=== PATIENT | female | born 1965 | race Caucasian/White ===

== ENCOUNTER 2020-09-08 13:45 | Inpatient (IN) ==
[2020-09-08] MEDS ORDERED: NS 1000 ML 1,000 ML ONE (13:53)
--- NOTE | 2020-09-08 13:53 | DR.CP ---
HPI Time Seen Time Seen by Provider: 09/08/20 13:53 HPI Comment HPI Comment: PATIENT IS 54YR OLD FEMALE IN ER VIA EMS WITH RIFGT SIDED 10/10 [place] RIGHT SIDED CHEST PAIN RADIATING TO RIGHT ARM. PAIN ASSOCIATED WITH SOB AND DIAPHORESIS. PAIN INCREASE WITH EXERTION AND IMPROVE WITH REST. NO FEVER OR COUGH OR CONGESTION. SMOKE 1PPD. DENIES TRAUMA. DENIES SIMILAR PAIN PREVIOUSLY. Complaint Chief Complaint Doctor Comments: RIGHT SIDED CHEST PAIN RADIATING TO RIGHT ARM STARTED TODAY. COVID-19 Coronavirus risk:travel/contact w/high risk person: No Has patient experienced Coronavirus symptoms: No Reviewed Nurses Notes Review: Yes Source History Provided: Patient Mode of Arrival Mode of Arrival: EMS Timing Came on: Suddenly Duration Duration: Constant Duration: Hours Location Location of Chest Pain: Chest (RIGHT SIDED CP.) Chest Pain Radiation Location: Right Arm Context Onset: At rest Cardiac Risk Factors: Smoker and Diabetes PE Risk Factors: None History of: None Prehospital Care: Oxygen, IV, SL Nitro and ASA Quality Quality: Sharp Severity Severity: Moderate Modifying Factors Worsens: Exertion Impoves: Rest Associated Signs and Symptoms Associated Signs and Symptoms: Shortness of Breath and Other (DIAPHORESIS.) PMH PMH Past Surgical History: Yes Travel Risk Coronavirus risk:travel/contact w/high risk person: No Has patient experienced Coronavirus symptoms: Yes Coronavirus symptoms experienced: Shortness of Breath Infectious screening In the last 2 months have you had wt loss of >10#?: NO Have you had fever, night sweats or hemotysis?: No ROS Review of Systems Constitutional: See HPI, Diaphoresis, Weakness and Fatigue; negative Fever Eyes: No Symptoms Reported and See HPI ENTM: No Symptoms Reported and See HPI; negative Nose Discharge and Nose Congestion Respiratoy: Short of Breath; negative Moist Cough and Wheezing Cardiovascular: See HPI and Chest Pain; negative Edema and Palpitations Gastrointestinal/Abdominal: No Symptoms Reported and See HPI; negative Abdominal Pain, Diarrhea, Nausea and Vomiting Genitourinary: No Symptoms Reported and See HPI; negative Dysuria, Frequency and Hematuria Neurological: See HPI and Weakness; negative Headache and Dizziness Musculoskeletal: No Symptoms Reported and See HPI; negative Back Pain, Muscle Pain and Chest wall Integumentary: No Symptoms Reported and See HPI; negative Change in Color, Rash and Juandice Hematologic/Lymphatic: No Symptoms Reported and See HPI; negative Easy Bruising and Swollen Glands Endocrine: No Symptoms Reported and See HPI; negative Increased Thirst and Increased Urine Psychiatric: No Symptoms Reported and See HPI All Other Systems: Reviewed and Negative PE Vitals Vitals: Temperature 98.2 F Pulse Rate 101 Respiratory Rate 23 Blood Pressure 112/57 O2 Sat by Pulse Oximetry 93 General Limitations: No Limitations General Appearance: Alert, In No Apparent Distress and In Distress Head Head Exam: Normal Inspection and Atraumatic Eyes Eye exam: Normal Appearance and PERRL; negative Scleral Icterus and Conjunctival Injection ENT ENT Exam: Normal Exam, Normal Oropharynx, Normal External Ear Exam and TM's Normal Bilaterally Chest Chest Inspection: Normal Inspection and Symmetric Chest Wall Rise; negative Tenderness Respiratory Respiratory Exam: Respiratory Distress; negative Accessory Muscle Use and Chest Wall Tenderness Respiratory Exam: Bilateral: Rhonchi and Lower: Rhonchi Cardiovascular Cardiovascular Exam: Regular Rate, Normal Rhythm and Normal Heart Sounds; negative Systolic Murmur and Diastolic Murmur Pulse: Normal Edema: Normal Abdominal Exam Abdominal Exam: Normal Inspection, Normal Bowel Sounds and Soft; negative Tenderness Extremities Extremities Exam: Normal Inspection and Normal Capillary Refill; negative Tenderness, Edema and Calf Tenderness Back Back Exam: Normal Inspection; negative (R) CVA Tenderness and (L) CVA Tenderness Neurologic Neurological Exam: Alert, Oriented X3 and CN II-XII Intact; negative Motor Sensory Deficit Psychiatric Psychiatric Exam: Normal Affect and Normal Mood Skin Skin Exam: Warm, Dry, Intact and Normal Color MDM Differential Diagnosis Differential Diagnosis: Chest Wall Pain, CHF, Costochondritis, Myocardial Infarction, Pericarditis, Pneumonia and Pneumothorax COURSE Treatment Treatment: SEE ORDERS. NS 1L IV, TORADOL 60MG IV, MORPHIN 4GM IVPB, ZOFRAN 4MG IV AND ZITHROMAX 500MG IVPB. Reevaluation 1st: Improved (PAIN INCREASING.) Consultation Consultation Comments: DISCUSSED PATIENT WITH DR. WRIGHT. HE WILL ADMIT PATIENT. Education/Counseling Education/Counseling: Patient Educated On: Diagnosis and Needs for Follow Up ROR Labs Reviewed Laboratory Results Reviewed?: Yes Result Diagrams: 09/20/20 05:18 09/20/20 05:18 Laboratory: WBC 17.4 X10^3/uL (3.6-10.0) H 09/08/20 14:00 RBC 4.33 X10^6/uL (3.5-5.4) 09/08/20 14:00 Hgb 12.4 g/dL (12.0-16.0) 09/08/20 14:00 Hct 37.0 % (36.0-47.0) 09/08/20 14:00 MCV 85.6 fL (80.0-100.0) 09/08/20 14:00 MCH 28.5 pg (27.0-34.0) 09/08/20 14:00 MCHC 33.3 g/dL (33.0-35.0) 09/08/20 14:00 RDW 15.1 % (11.6-16.5) 09/08/20 14:00 Plt Count 555 X10^3/uL (150.0-450.0) H 09/08/20 14:00 MPV 8.5 fL (7.4-11.0) 09/08/20 14:00 Neut % (Auto) 66.7 % (42.0-75.0) 09/08/20 14:00 Lymph % (Auto) 23.1 % (21.0-51.0) 09/08/20 14:00 [place] % (Auto) 5.7 % (0.0-13.0) 09/08/20 14:00 Eos % (Auto) 3.1 % (0.9-2.9) H 09/08/20 14:00 Baso % (Auto) 1.4 % (0.2-1.0) H 09/08/20 14:00 Neut # (Auto) 11.6 x10^3/uL (2.2-4.8) H 09/08/20 14:00 Lymph # (Auto) 4.0 X10^3/uL (1.3-2.9) H 09/08/20 14:00 [place] # (Auto) 1.0 x10^3/uL (0.3-0.8) H 09/08/20 14:00 Eos # (Auto) 0.5 x10^3/uL (0.0-0.2) H 09/08/20 14:00 Baso # (Auto) 0.2 X10^3/uL (0.0-0.1) H 09/08/20 14:00 Absolute Nucleated RBC 0.0 /100WBC 09/08/20 14:00 PT 13.7 SECONDS (11.8-14.3) 09/08/20 14:42 INR Target Range - 09/08/20 14:42 INR 1.08 (0.8-1.3) 09/08/20 14:42 APTT 37.8 SECONDS (22.9-36.5) H 09/08/20 14:42 PTT Comment - 09/08/20 14:42 D-Dimer 2.36 ug/ml (0.0-0.57) H* 09/08/20 14:42 Sodium 138 mmol/L (136-145) 09/08/20 14:00 Corrected Sodium 139 mmol/L (136-145) 09/08/20 14:00 Potassium 4.5 mmol/L (3.5-5.1) 09/08/20 14:00 Chloride 100 mmol/L (98-107) 09/08/20 14:00 Carbon Dioxide 24.3 mmol/L (21-32) 09/08/20 14:00 BUN 14 mg/dL (7-18) 09/08/20 14:00 Creatinine 1.26 mg/dL (0.55-1.02) H 09/08/20 14:00 Est GFR (MDRD) Af Amer 57 (>60) L 09/08/20 14:00 Est GFR (MDRD) Non-Af 47 (>60) L 09/08/20 14:00 Glucose 129 mg/dL (65-99) H 09/08/20 14:00 Calcium 10.0 mg/dL (8.5-10.1) 09/08/20 14:00 Corrected Calcium 10.6 mg/dL (8.5-10.1) H 09/08/20 14:00 Total Bilirubin 0.20 mg/dL (0.2-1.0) 09/08/20 14:00 AST 16 Units/L (15-37) 09/08/20 14:00 ALT 18 Units/L (12-78) 09/08/20 14:00 Alkaline Phosphatase 95 Units/L (46-116) 09/08/20 14:00 Creatine Kinase 66 Units/L (26-192) 09/08/20 14:00 CK-MB (CK-2) < 1.0 ng/mL (0-4.0) 09/08/20 14:00 CK/CKMB % Calc 1.5 % (<4) 09/08/20 14:00 Troponin I < 0.02 ng/mL (0-1.5) 09/08/20 14:00 B-Natriuretic Peptide 16.5 pg/mL (0-79) 09/08/20 14:00 Total Protein 8.6 g/dL (6.4-8.2) H 09/08/20 14:00 Albumin 3.2 g/dL (3.4-5.0) L 09/08/20 14:00 Globulin 5.4 g/dL (2.5-4.5) H 09/08/20 14:00 Albumin/Globulin Ratio 0.6 Ratio (1.1-2.1) L 09/08/20 14:00 Amylase 66 Units/L (25-115) 09/08/20 14:00 Lipase 97 Units/L (73-393) 09/08/20 14:00 SARS-CoV-2 (PCR) Negative (NEGATIVE) 09/08/20 16:58 XRAY XRAY Interpreted by: Radiologist (REPORT NOTED AND DISCUSSED WITH PATIENT.) and Self EKG Rate: 91 [place]: Normal Rhythm: NSR Block: None Hypertrophy: LAE ST: Nonsp Opioid Opioid Risk Tool Age (Genaro box if 16-45): No Total: 0 Total Score Risk Category: Low Risk Copyright: Triana ANGELA predicting aberrant behaviors Diagnosis Discharge Problem: Pulmonary cavitary lesion Pneumonia Qualifiers: Pneumonia type: due to unspecified organism Laterality: right Lung location: upper lobe of lung Qualified Code(s): J18.9 - Pneumonia, unspecified organism Chest pain Qualifiers: Chest pain type: intercostal pain Qualified Code(s): R07.82 - Intercostal pain Instructions Instructions: Home Oxygen Use, Adult Steps to Quit Smoking, Ekzk-[id number] Type 2 Diabetes Mellitus, Self Care, Adult, Oqxf-le-Khjf Chronic Obstructive Pulmonary Disease Exacerbation, Icbb-[id number] Pleural Effusion Pursed Lip Breathing Heart Failure, Cnto-eq-Fihe Living With Heart Failure Respiratory Syncytial Virus, Adult Community-Acquired Pneumonia, Adult, [id number] Forms: Excuse From Work Precautions for COVID19 Patient Portal Social Distancing
[2020-09-08] MEDS ORDERED: MORPHINE SULFATE INJ 4 MG ONE ×2 (13:58→16:44)
[2020-09-08] MEDS ORDERED: ZOFRAN INJ 4 MG VIAL ONE (13:59)
[2020-09-08 14:09] VITALS: BMI 37.2
[2020-09-08] MEDS ORDERED: MORPHINE SULFATE INJ 4 MG IVP ONE ×2 (14:19→16:47)
[2020-09-08] MEDS ORDERED: ZOFRAN INJ 4 MG VIAL IVP ONE (14:19)
[2020-09-08 14:30] LABS: BASOPHILS # (AUTO) 0.2 X10^3/uL (0.0-0.1); BASOPHILS % (AUTO) 1.4 % (0.2-1.0); EOSINOPHILS # (AUTO) 0.5 x10^3/uL (0.0-0.2); EOSINOPHILS % (AUTO) 3.1 % (0.9-2.9); HEMOGLOBIN 12.4 g/dL (12.0-16.0); LYMPHOCYTES % (AUTO) 23.1 % (21.0-51.0); MEAN CORPUSCULAR HEMOGLOBIN 28.5 pg (27.0-34.0); MEAN CORPUSCULAR HGB CONC 33.3 g/dL (33.0-35.0); MEAN CORPUSCULAR VOLUME 85.6 fL (80.0-100.0); MEAN PLATELET VOLUME 8.5 fL (7.4-11.0); MONOCYTES % (AUTO) 5.7 % (0.0-13.0); NEUTROPHILS # (AUTO) 11.6 x10^3/uL (2.2-4.8); NEUTROPHILS % (AUTO) 66.7 % (42.0-75.0); PLATELET COUNT 555 X10^3/uL (150.0-450.0); RED BLOOD COUNT 4.33 X10^6/uL (3.5-5.4); RED CELL DISTRIBUTION WIDTH 15.1 % (11.6-16.5); WHITE BLOOD COUNT 17.4 X10^3/uL (3.6-10.0)
[2020-09-08 14:54] LABS: BLOOD UREA NITROGEN 14 mg/dL (7-18); CARBON DIOXIDE 24.3 mmol/L (21-32); CHLORIDE 100 mmol/L (98-107); COR NA(FOR HYPERGLY) 139 mmol/L (136-145); CREATININE 1.26 mg/dL (0.55-1.02); SODIUM 138 mmol/L (136-145); TROPONIN I < 0.02 ng/mL (0-1.5); eGFR NON BLACK RACES 47 (>60)
[2020-09-08] MEDS ORDERED: NS 1000 ML 1,000 ML IV SCH (15:00)
[2020-09-08 15:09] LABS: ALANINE AMINOTRANSFERASE 18 Units/L (12-78); ALBUMIN 3.2 g/dL (3.4-5.0); ALKALINE PHOSPHATASE 95 Units/L (46-116); AMYLASE 66 Units/L (25-115); ASPARTATE AMINO TRANSFERASE 16 Units/L (15-37); CKMB % 1.5 % (<4); COR CA(FOR HYPOALB) 10.6 mg/dL (8.5-10.1); CREATINE KINASE 66 Units/L (26-192); CREATINE KINASE MB < 1.0 ng/mL (0-4.0); LIPASE 97 Units/L (73-393); TOTAL PROTEIN 8.6 g/dL (6.4-8.2)
--- NOTE | 2020-09-08 16:18 | CT ---
HISTORYPT C/O RT SIDED CHEST PAIN RADIATING TO RT SHOULDER AND UNDER RT BREAST. PT IS NOTED TO BE DIAPHORETIC AND HAVING SHORTNESS OF BREATH. SENIOR ENGINEER EMS ADMINISTERED [id number] PO AND NITRO X2 LAST ONE ADMINISTERED AT 1238.STUDYCTA CHESTCOMPARISONNoneTECHNIQUEMultiple axial images of the chest were obtained from the thoracic inlet to the upper abdomen after the administration of IV contrast. 3D reconstructions utilizing axial MIPS imaging was performed and reviewed. Dose reduction techniques including Automated Exposure Control (AEC) and adjustment of mA and kV were utilized.FINDINGSNo pneumothorax. Trace right pleural effusion. Cavitary 3.2 x 1.9 cm right upper lobe nodule. Additional smaller nodules throughout the bilateral lungs. Ground-glass opacities scattered throughout the bilateral lungs.Evaluation of the pulmonary arteries is limited due to contrast bolus timing. No evidence of pulmonary embolism within study limits.The heart is normal in size. No evidence of pericardial disease. Coronary calcifications. Mediastinal and right hilar adenopathy.No acute osseous abnormality.Limited visualized portions of the upper abdomen demonstrate no significant abnormality.IMPRESSIONNo evidence of pulmonary embolism within limits.Cavitary right upper lobe nodule measuring 3.2 x 1.9 cm. Additional smaller nodules throughout the bilateral lungs. Findings may be due to autoimmune or infectious process. Septic embolism or malignancy not excluded. Recommend follow-up to resolution.Mediastinal and right hilar adenopathy, likely secondary to above. Malignancy/metastasis not excluded. Continued follow-up recommended.Trace right pleural effusion.Electronically signed by: LOUIS BUSH (Sep 08, 2020 16:20:41)
[2020-09-08] MEDS ORDERED: ZOFRAN INJ 4 MG VIAL IVP PRN (16:49)
[2020-09-08] MEDS ORDERED: NS 250 ML IV 250 ML IV ONE (17:40)
[2020-09-08] MEDS ORDERED: ZITHROMAX INJ 500 MG VIAL IV ONE (17:40)
[2020-09-08] MEDS: ZITHROMAX INJ 500 MG VIAL 500 MG in NS 250 ML IV 250 ML IV SCH (17:48)
[2020-09-08 18:50] LABS: ABG BASE EXCESS -1.3 mmol/L (-2.0-2.0); ABG HCO3 24.3 mmol/L (22-26); FRACTIONATED INSPIRED OXYGEN 28
[2020-09-08] MEDS ORDERED: TUSSIONEX PENNKINETIC SUSP PO PRN (18:50)
[2020-09-08 18:51] LABS: ABG ALLEN TEST POS
[2020-09-08] MEDS ORDERED: TORADOL 60 MG VIAL IM ONE (19:29)
[2020-09-08] MEDS ORDERED: TORADOL 60 MG VIAL ONE (19:41)
[2020-09-08] MEDS ORDERED: NS 1/2 1000 ML IV 1,000 ML IV ONE (19:49)
[2020-09-08] MEDS: NS 1/2 1000 ML IV 1,000 ML IV SCH ×2 (19:54→19:57)
[2020-09-08] MEDS ORDERED: INSULIN GLARGINE 80 UNIT SUBCUT SCH (21:00)
[2020-09-08] MEDS: ZOSYN VIAL 3.375 GRAMS 3.375 G in NS 100 ML IV + SPIKE MINIBAG* 100 ML IV SCH ×2 (22:27→22:28)
[2020-09-08] MEDS: ROBITUSSIN DM PO SCH (22:28)
[2020-09-08] MEDS ORDERED: GLUCOPHAGE ONE (22:42)
[2020-09-08] MEDS ORDERED: NEURONTIN CAP 400 MG ONE (22:43)
[2020-09-08] MEDS: GLUCOPHAGE PO SCH (22:51)
[2020-09-08] MEDS: EFFEXOR XR 150 MG CAP 24-HR PO SCH (22:51)
[2020-09-08] MEDS: WELLBUTRIN SR 150 MG (BID) PO SCH (22:51)
[2020-09-08] MEDS: NEURONTIN CAP 400 MG PO SCH (22:51)
[2020-09-08] MEDS: LIPITOR TAB 20 MG PO SCH (22:51)
[2020-09-08] MEDS: SINGULAIR TAB 10 MG PO SCH (22:51)
[2020-09-08 23:55] LABS: CKMB % 2.4 % (<4); CREATINE KINASE 42 Units/L (26-192); CREATINE KINASE MB < 1.0 ng/mL (0-4.0); TROPONIN I < 0.02 ng/mL (0-1.5)
[2020-09-09] MEDS: MORPHINE SULFATE INJ 4 MG IVP PRN ×3 (04:15→18:30)
[2020-09-09] MEDS ORDERED: GLUCOPHAGE ONE ×2 (05:10→17:13)
[2020-09-09] MEDS: NEURONTIN CAP 100 MG PO SCH ×2 (05:48→12:59)
[2020-09-09] MEDS: ZOSYN VIAL 3.375 GRAMS 3.375 G in NS 100 ML IV + SPIKE MINIBAG* 100 ML IV SCH (05:49)
[2020-09-09 06:06] LABS: BASOPHILS # (AUTO) 0.1 X10^3/uL (0.0-0.1); BASOPHILS % (AUTO) 0.4 % (0.2-1.0); EOSINOPHILS # (AUTO) 0.3 x10^3/uL (0.0-0.2); EOSINOPHILS % (AUTO) 1.2 % (0.9-2.9); HEMATOCRIT 32.4 % (36.0-47.0); HEMOGLOBIN 10.6 g/dL (12.0-16.0); LYMPHOCYTES # (AUTO) 1.9 X10^3/uL (1.3-2.9); LYMPHOCYTES % (AUTO) 8.8 % (21.0-51.0); MEAN CORPUSCULAR HEMOGLOBIN 28.1 pg (27.0-34.0); MEAN CORPUSCULAR HGB CONC 32.6 g/dL (33.0-35.0); MEAN CORPUSCULAR VOLUME 86.2 fL (80.0-100.0); MEAN PLATELET VOLUME 8.5 fL (7.4-11.0); MONOCYTES # (AUTO) 1.1 x10^3/uL (0.3-0.8); MONOCYTES % (AUTO) 5.1 % (0.0-13.0); NEUTROPHILS # (AUTO) 18.7 x10^3/uL (2.2-4.8); NEUTROPHILS % (AUTO) 84.5 % (42.0-75.0); PLATELET COUNT 433 X10^3/uL (150.0-450.0); RED BLOOD COUNT 3.76 X10^6/uL (3.5-5.4); WHITE BLOOD COUNT 22.2 X10^3/uL (3.6-10.0)
[2020-09-09 06:17] LABS: ALANINE AMINOTRANSFERASE 14 Units/L (12-78); ALBUMIN 2.5 g/dL (3.4-5.0); ALKALINE PHOSPHATASE 79 Units/L (46-116); ASPARTATE AMINO TRANSFERASE 12 Units/L (15-37); BLOOD UREA NITROGEN 23 mg/dL (7-18); CALCIUM 8.7 mg/dL (8.5-10.1); CARBON DIOXIDE 24.4 mmol/L (21-32); CHLORIDE 100 mmol/L (98-107); CKMB % 2.3 % (<4); COR CA(FOR HYPOALB) 9.9 mg/dL (8.5-10.1); COR NA(FOR HYPERGLY) 137 mmol/L (136-145); CREATINE KINASE 43 Units/L (26-192); CREATINE KINASE MB < 1.0 ng/mL (0-4.0); CREATININE 1.49 mg/dL (0.55-1.02); SODIUM 135 mmol/L (136-145); TROPONIN I < 0.02 ng/mL (0-1.5); eGFR NON BLACK RACES 39 (>60)
[2020-09-09] MEDS: GLUCOPHAGE PO SCH ×2 (06:17→17:19)
[2020-09-09 06:52] LABS: BAND NEUTROPHILS % 2 % (0-10)
[2020-09-09 06:53] LABS: PLATELET MORPHOLOGY COMMENT NORMAL (NORMAL)
[2020-09-09] MEDS ORDERED: TRICOR TAB 160 MG PO SCH ×2 (09:00→21:00)
[2020-09-09] MEDS ORDERED: ACTOS PO SCH ×2 (09:00→12:00)
[2020-09-09] MEDS ORDERED: VICTOZA SC SCH ×2 (09:00→21:00)
[2020-09-09] MEDS ORDERED: NS 1/2 1000 ML IV 0 ML IV ONE (09:03)
[2020-09-09] MEDS: ASPIRIN 81 MG CHEWTAB PO SCH (09:06)
[2020-09-09] MEDS: NS 1/2 1000 ML IV 1,000 ML IV SCH ×2 (09:07→11:06)
[2020-09-09] MEDS: ROBITUSSIN DM PO SCH ×4 (09:07→21:18)
[2020-09-09] MEDS: VSL#3 PO SCH (09:07)
[2020-09-09] MEDS: WELLBUTRIN SR 150 MG (BID) PO SCH ×2 (09:08→21:19)
[2020-09-09] MEDS: ZITHROMAX INJ 500 MG VIAL 500 MG in NS 250 ML IV 250 ML IV SCH (09:09)
[2020-09-09] MEDS: MERREM VIAL 500 MG in NS 100 ML IV + SPIKE MINIBAG* 100 ML IV SCH ×3 (10:54→21:21)
[2020-09-09] MEDS: LR 1000 ML IV 1,000 ML IV SCH ×2 (10:57→20:53)
[2020-09-09] MEDS: HumuLIN R SUBCUT PRN (11:30)
[2020-09-09] MEDS ORDERED: TYLENOL 325 MG TAB PO PRN (12:23)
[2020-09-09] MEDS: ACTOS PO SCH (12:59)
[2020-09-09] MEDS ORDERED: DUONEB 0.5 MG/3 MG (3 mL) NEB ONE (18:20)
[2020-09-09] MEDS ORDERED: TRICOR TAB 160 MG ONE (19:41)
[2020-09-09] MEDS ORDERED: PULMICORT NEB TX 0.5 MG NEB ONE (19:43)
[2020-09-09] MEDS ORDERED: NS 250 ML IV 250 ML IV ONE (21:06)
[2020-09-09] MEDS: PULMICORT NEB TX 0.5 MG NEB SCH (21:15)
[2020-09-09] MEDS: EFFEXOR XR 150 MG CAP 24-HR PO SCH (21:17)
[2020-09-09] MEDS: LIPITOR TAB 20 MG PO SCH (21:17)
[2020-09-09] MEDS: NEURONTIN CAP 400 MG PO SCH (21:18)
[2020-09-09] MEDS: TRICOR TAB 160 MG PO SCH (21:19)
[2020-09-09] MEDS: SINGULAIR TAB 10 MG PO SCH (21:19)
[2020-09-09] MEDS: VICTOZA SC SCH (21:20)
[2020-09-10] MEDS: XOPENEX 1.25 MG/3 ML NEBULE NEB SCH ×4 (00:05→17:12)
[2020-09-10] MEDS: MORPHINE SULFATE INJ 4 MG IVP PRN ×3 (01:00→16:25)
[2020-09-10] MEDS: LR 1000 ML IV 1,000 ML IV SCH ×3 (05:45→18:53)
[2020-09-10] MEDS: MERREM VIAL 500 MG in NS 100 ML IV + SPIKE MINIBAG* 100 ML IV SCH ×3 (05:45→21:15)
[2020-09-10] MEDS ORDERED: GLUCOPHAGE ONE ×2 (05:53→16:18)
[2020-09-10 06:04] LABS: BASOPHILS % (AUTO) 0.1 % (0.2-1.0); EOSINOPHILS % (AUTO) 0.1 % (0.9-2.9); HEMATOCRIT 30.7 % (36.0-47.0); HEMOGLOBIN 10.2 g/dL (12.0-16.0); LYMPHOCYTES # (AUTO) 1.4 X10^3/uL (1.3-2.9); LYMPHOCYTES % (AUTO) 5.7 % (21.0-51.0); MEAN CORPUSCULAR HEMOGLOBIN 28.5 pg (27.0-34.0); MEAN CORPUSCULAR VOLUME 86.3 fL (80.0-100.0); MEAN PLATELET VOLUME 8.8 fL (7.4-11.0); MONOCYTES # (AUTO) 0.8 x10^3/uL (0.3-0.8); MONOCYTES % (AUTO) 3.2 % (0.0-13.0); NEUTROPHILS # (AUTO) 22.7 x10^3/uL (2.2-4.8); NEUTROPHILS % (AUTO) 90.9 % (42.0-75.0); PLATELET COUNT 410 X10^3/uL (150.0-450.0); RED BLOOD COUNT 3.56 X10^6/uL (3.5-5.4)
[2020-09-10] MEDS: NEURONTIN CAP 100 MG PO SCH ×2 (06:09→11:34)
[2020-09-10] MEDS: GLUCOPHAGE PO SCH ×2 (06:10→16:23)
[2020-09-10] MEDS: HumuLIN R SUBCUT PRN ×3 (06:10→16:23)
[2020-09-10 06:30] LABS: ALANINE AMINOTRANSFERASE 15 Units/L (12-78); ALKALINE PHOSPHATASE 84 Units/L (46-116); ASPARTATE AMINO TRANSFERASE 29 Units/L (15-37); BLOOD UREA NITROGEN 18 mg/dL (7-18); CALCIUM 8.8 mg/dL (8.5-10.1); CARBON DIOXIDE 26.8 mmol/L (21-32); CHLORIDE 98 mmol/L (98-107); COR CA(FOR HYPOALB) 10.4 mg/dL (8.5-10.1); COR NA(FOR HYPERGLY) 136 mmol/L (136-145); CREATININE 1.03 mg/dL (0.55-1.02); SODIUM 133 mmol/L (136-145); TOTAL PROTEIN 7.4 g/dL (6.4-8.2); eGFR NON BLACK RACES 60 (>60)
[2020-09-10 06:39] LABS: PLATELET MORPHOLOGY COMMENT NORMAL (NORMAL)
[2020-09-10] MEDS: WELLBUTRIN SR 150 MG (BID) PO SCH ×2 (09:10→21:15)
[2020-09-10] MEDS: VSL#3 PO SCH (09:10)
[2020-09-10] MEDS: ASPIRIN 81 MG CHEWTAB PO SCH (09:10)
[2020-09-10] MEDS: ROBITUSSIN DM PO SCH ×4 (09:10→21:15)
[2020-09-10] MEDS: ZITHROMAX INJ 500 MG VIAL 500 MG in NS 250 ML IV 250 ML IV SCH (09:11)
[2020-09-10] MEDS: PULMICORT NEB TX 0.5 MG NEB SCH ×2 (09:50→21:50)
--- NOTE | 2020-09-10 10:12 | RAD ---
HISTORYPneumoniaSTUDYChest AP portableCOMPARISONCTA chest with contrast 09/08/2020FINDINGSThe heart is enlarged. Diffuse bilateral perihilar alveolar filling is now present representing a change from the recent CTA chest. The lung nodules described on the CTA chest are obscured by these infiltrates. This could represent cardiogenic or noncardiogenic edema or bilateral pneumonia. No pleural effusions are identified. Bony thorax is unremarkable.IMPRESSIONIncreasing bilateral perihilar alveolar filling when compared to the prior examination now obscuring the nodular densities described on the recent CTA chest. This could be cardiogenic or noncardiogenic pulmonary edema or infection.CardiomegalyElectronically signed by: LOUIS BUSH (Sep 10, 2020 10:11:55)
[2020-09-10] MEDS: AVELOX IV 400 MG/250 ML BAG 400 MG/250 ML PIGGYBACK IV SCH (11:32)
[2020-09-10] MEDS: ACTOS PO SCH (11:35)
[2020-09-10] MEDS: TRICOR TAB 160 MG PO SCH (21:15)
[2020-09-10] MEDS: SINGULAIR TAB 10 MG PO SCH (21:15)
[2020-09-10] MEDS: EFFEXOR XR 150 MG CAP 24-HR PO SCH (21:15)
[2020-09-10] MEDS: VICTOZA SC SCH (21:15)
[2020-09-10] MEDS: NEURONTIN CAP 400 MG PO SCH (21:15)
[2020-09-10] MEDS: LIPITOR TAB 20 MG PO SCH (21:15)
[2020-09-11] MEDS: XOPENEX 1.25 MG/3 ML NEBULE NEB SCH ×4 (00:55→17:51)
[2020-09-11] MEDS: NEURONTIN CAP 100 MG PO SCH ×2 (05:27→11:20)
[2020-09-11] MEDS: LR 1000 ML IV 1,000 ML IV SCH ×2 (05:27→11:05)
[2020-09-11] MEDS: MERREM VIAL 500 MG in NS 100 ML IV + SPIKE MINIBAG* 100 ML IV SCH ×3 (05:27→21:55)
[2020-09-11] MEDS: HumuLIN R SUBCUT PRN ×2 (05:49→21:15)
[2020-09-11] MEDS ORDERED: GLUCOPHAGE ONE ×2 (05:57→16:58)
--- NOTE | 2020-09-11 06:00 | RAD ---
HISTORYFollow-up pneumoniaSTUDYChest AP [id number]/13/2020FINDINGSThe heart is mildly enlarged. Diffuse bilateral perihilar infiltrates are again identified slightly improved when compared to the prior examination. This could represent cardiogenic or noncardiogenic pulmonary edema or bilateral pneumonia. No pleural effusions are identified. Bony thorax is unremarkable.IMPRESSIONSlightly improved bilateral perihilar alveolar fillingElectronically signed by: LOUIS BUSH (Sep 11, 2020 05:59:47)
[2020-09-11 06:06] LABS: BASOPHILS # (AUTO) 0.1 X10^3/uL (0.0-0.1); BASOPHILS % (AUTO) 0.3 % (0.2-1.0); EOSINOPHILS % (AUTO) 0.2 % (0.9-2.9); HEMOGLOBIN 9.8 g/dL (12.0-16.0); LYMPHOCYTES % (AUTO) 3.9 % (21.0-51.0); MEAN CORPUSCULAR HEMOGLOBIN 28.1 pg (27.0-34.0); MEAN CORPUSCULAR HGB CONC 32.6 g/dL (33.0-35.0); MEAN PLATELET VOLUME 8.9 fL (7.4-11.0); NEUTROPHILS # (AUTO) 22.7 x10^3/uL (2.2-4.8); NEUTROPHILS % (AUTO) 91.6 % (42.0-75.0); PLATELET COUNT 417 X10^3/uL (150.0-450.0); RED BLOOD COUNT 3.49 X10^6/uL (3.5-5.4); WHITE BLOOD COUNT 24.7 X10^3/uL (3.6-10.0)
[2020-09-11] MEDS: GLUCOPHAGE PO SCH ×2 (06:23→17:00)
[2020-09-11 06:40] LABS: ALANINE AMINOTRANSFERASE 18 Units/L (12-78); ALKALINE PHOSPHATASE 91 Units/L (46-116); ASPARTATE AMINO TRANSFERASE 25 Units/L (15-37); BLOOD UREA NITROGEN 14 mg/dL (7-18); CALCIUM 9.2 mg/dL (8.5-10.1); CARBON DIOXIDE 27.3 mmol/L (21-32); CHLORIDE 98 mmol/L (98-107); COR CA(FOR HYPOALB) 10.8 mg/dL (8.5-10.1); COR NA(FOR HYPERGLY) 137 mmol/L (136-145); CREATININE 0.71 mg/dL (0.55-1.02); SODIUM 134 mmol/L (136-145); TOTAL PROTEIN 7.8 g/dL (6.4-8.2); eGFR NON BLACK RACES > 60 (>60)
[2020-09-11 06:46] LABS: BAND NEUTROPHILS % 2 % (0-10); PLATELET MORPHOLOGY COMMENT NORMAL (NORMAL)
[2020-09-11] MEDS: PULMICORT NEB TX 0.5 MG NEB SCH ×2 (08:25→21:55)
[2020-09-11] MEDS ORDERED: NS 250 ML IV 250 ML IV ONE (08:26)
[2020-09-11] MEDS: AVELOX IV 400 MG/250 ML BAG 400 MG/250 ML PIGGYBACK IV SCH (09:26)
[2020-09-11] MEDS: ROBITUSSIN DM PO SCH ×4 (09:34→21:53)
[2020-09-11] MEDS: ASPIRIN 81 MG CHEWTAB PO SCH (09:34)
[2020-09-11] MEDS: WELLBUTRIN SR 150 MG (BID) PO SCH ×2 (09:34→21:55)
[2020-09-11] MEDS: VSL#3 PO SCH (09:34)
[2020-09-11] MEDS: ZITHROMAX INJ 500 MG VIAL 500 MG in NS 250 ML IV 250 ML IV SCH (09:35)
[2020-09-11] MEDS: ACTOS PO SCH (11:20)
[2020-09-11] MEDS: EFFEXOR XR 150 MG CAP 24-HR PO SCH (21:52)
[2020-09-11] MEDS: LIPITOR TAB 20 MG PO SCH (21:52)
[2020-09-11] MEDS: NEURONTIN CAP 400 MG PO SCH (21:52)
[2020-09-11] MEDS: TRICOR TAB 160 MG PO SCH (21:53)
[2020-09-11] MEDS: SINGULAIR TAB 10 MG PO SCH (21:53)
[2020-09-11] MEDS: VICTOZA SC SCH (21:54)
[2020-09-12] MEDS: XOPENEX 1.25 MG/3 ML NEBULE NEB SCH ×4 (01:30→18:01)
[2020-09-12] MEDS ORDERED: GLUCOPHAGE ONE ×2 (04:40→17:14)
[2020-09-12] MEDS: NEURONTIN CAP 100 MG PO SCH ×2 (05:50→12:30)
[2020-09-12] MEDS: MERREM VIAL 500 MG in NS 100 ML IV + SPIKE MINIBAG* 100 ML IV SCH ×3 (05:50→21:00)
[2020-09-12] MEDS: LR 1000 ML IV 1,000 ML IV SCH ×3 (05:59→18:47)
[2020-09-12] MEDS: GLUCOPHAGE PO SCH ×2 (05:59→17:28)
[2020-09-12 06:23] LABS: BASOPHILS # (AUTO) 0.1 X10^3/uL (0.0-0.1); BASOPHILS % (AUTO) 0.6 % (0.2-1.0); EOSINOPHILS # (AUTO) 0.1 x10^3/uL (0.0-0.2); EOSINOPHILS % (AUTO) 0.4 % (0.9-2.9); HEMATOCRIT 26.1 % (36.0-47.0); HEMOGLOBIN 8.6 g/dL (12.0-16.0); LYMPHOCYTES # (AUTO) 1.5 X10^3/uL (1.3-2.9); LYMPHOCYTES % (AUTO) 7.8 % (21.0-51.0); MEAN CORPUSCULAR HEMOGLOBIN 28.3 pg (27.0-34.0); MEAN CORPUSCULAR HGB CONC 33.1 g/dL (33.0-35.0); MEAN CORPUSCULAR VOLUME 85.5 fL (80.0-100.0); MEAN PLATELET VOLUME 8.9 fL (7.4-11.0); MONOCYTES # (AUTO) 1.1 x10^3/uL (0.3-0.8); MONOCYTES % (AUTO) 5.7 % (0.0-13.0); NEUTROPHILS # (AUTO) 15.9 x10^3/uL (2.2-4.8); NEUTROPHILS % (AUTO) 85.5 % (42.0-75.0); PLATELET COUNT 439 X10^3/uL (150.0-450.0); RED BLOOD COUNT 3.05 X10^6/uL (3.5-5.4); RED CELL DISTRIBUTION WIDTH 14.7 % (11.6-16.5); WHITE BLOOD COUNT 18.6 X10^3/uL (3.6-10.0)
[2020-09-12 06:36] LABS: ALANINE AMINOTRANSFERASE 21 Units/L (12-78); ALBUMIN 1.8 g/dL (3.4-5.0); ALKALINE PHOSPHATASE 109 Units/L (46-116); ASPARTATE AMINO TRANSFERASE 26 Units/L (15-37); BLOOD UREA NITROGEN 13 mg/dL (7-18); CALCIUM 9.4 mg/dL (8.5-10.1); CARBON DIOXIDE 33.1 mmol/L (21-32); CHLORIDE 100 mmol/L (98-107); COR CA(FOR HYPOALB) 11.2 mg/dL (8.5-10.1); COR NA(FOR HYPERGLY) 140 mmol/L (136-145); CREATININE 0.57 mg/dL (0.55-1.02); SODIUM 138 mmol/L (136-145); TOTAL PROTEIN 7.5 g/dL (6.4-8.2); eGFR NON BLACK RACES > 60 (>60)
[2020-09-12] MEDS: VSL#3 PO SCH (08:57)
[2020-09-12] MEDS: WELLBUTRIN SR 150 MG (BID) PO SCH ×2 (08:58→21:50)
[2020-09-12] MEDS: ASPIRIN 81 MG CHEWTAB PO SCH (08:58)
[2020-09-12] MEDS: ZITHROMAX INJ 500 MG VIAL 500 MG in NS 250 ML IV 250 ML IV SCH (09:15)
[2020-09-12] MEDS: ROBITUSSIN DM PO SCH ×4 (09:30→20:50)
[2020-09-12] MEDS: PULMICORT NEB TX 0.5 MG NEB SCH ×2 (09:30→21:45)
[2020-09-12] MEDS ORDERED: TYLENOL 500 MG TAB EXTRA STRENGTH PO PRN (09:33)
[2020-09-12] MEDS ORDERED: MOTRIN TAB 800 MG PO PRN (09:33)
[2020-09-12] MEDS: AVELOX IV 400 MG/250 ML BAG 400 MG/250 ML PIGGYBACK IV SCH (10:25)
[2020-09-12] MEDS: ACTOS PO SCH (12:30)
[2020-09-12] MEDS: HumuLIN R SUBCUT PRN (17:29)
[2020-09-12] MEDS: TRICOR TAB 160 MG PO SCH (20:50)
[2020-09-12] MEDS: SINGULAIR TAB 10 MG PO SCH (20:50)
[2020-09-12] MEDS: LIPITOR TAB 20 MG PO SCH (20:50)
[2020-09-12] MEDS: VICTOZA SC SCH (20:50)
[2020-09-12] MEDS: NEURONTIN CAP 400 MG PO SCH (20:50)
[2020-09-12] MEDS: EFFEXOR XR 150 MG CAP 24-HR PO SCH (20:50)
[2020-09-13] MEDS: XOPENEX 1.25 MG/3 ML NEBULE NEB SCH ×4 (00:15→17:30)
[2020-09-13] MEDS: LR 1000 ML IV 1,000 ML IV SCH ×5 (02:30→23:32)
[2020-09-13] MEDS ORDERED: GLUCOPHAGE ONE ×2 (04:43→16:48)
[2020-09-13] MEDS: MERREM VIAL 500 MG in NS 100 ML IV + SPIKE MINIBAG* 100 ML IV SCH ×3 (05:31→22:00)
[2020-09-13] MEDS: NEURONTIN CAP 100 MG PO SCH ×2 (05:32→12:24)
[2020-09-13] MEDS ORDERED: NS 250 ML IV 250 ML IV ONE (05:34)
[2020-09-13] MEDS: GLUCOPHAGE PO SCH ×2 (06:18→17:13)
[2020-09-13 06:26] LABS: BASOPHILS # (AUTO) 0.1 X10^3/uL (0.0-0.1); BASOPHILS % (AUTO) 0.5 % (0.2-1.0); EOSINOPHILS # (AUTO) 0.2 x10^3/uL (0.0-0.2); EOSINOPHILS % (AUTO) 1.3 % (0.9-2.9); HEMATOCRIT 28.5 % (36.0-47.0); HEMOGLOBIN 9.4 g/dL (12.0-16.0); LYMPHOCYTES # (AUTO) 1.2 X10^3/uL (1.3-2.9); LYMPHOCYTES % (AUTO) 8.5 % (21.0-51.0); MEAN CORPUSCULAR HEMOGLOBIN 28.3 pg (27.0-34.0); MEAN CORPUSCULAR HGB CONC 32.9 g/dL (33.0-35.0); MEAN CORPUSCULAR VOLUME 86.2 fL (80.0-100.0); MEAN PLATELET VOLUME 8.9 fL (7.4-11.0); MONOCYTES # (AUTO) 0.9 x10^3/uL (0.3-0.8); NEUTROPHILS # (AUTO) 12.1 x10^3/uL (2.2-4.8); NEUTROPHILS % (AUTO) 83.7 % (42.0-75.0); PLATELET COUNT 486 X10^3/uL (150.0-450.0); RED BLOOD COUNT 3.31 X10^6/uL (3.5-5.4); RED CELL DISTRIBUTION WIDTH 14.7 % (11.6-16.5); WHITE BLOOD COUNT 14.5 X10^3/uL (3.6-10.0)
[2020-09-13 06:41] LABS: ALANINE AMINOTRANSFERASE 23 Units/L (12-78); ALBUMIN 1.8 g/dL (3.4-5.0); ALKALINE PHOSPHATASE 101 Units/L (46-116); ASPARTATE AMINO TRANSFERASE 21 Units/L (15-37); BLOOD UREA NITROGEN 12 mg/dL (7-18); CALCIUM 9.3 mg/dL (8.5-10.1); CARBON DIOXIDE 35.4 mmol/L (21-32); CHLORIDE 100 mmol/L (98-107); COR CA(FOR HYPOALB) 11.1 mg/dL (8.5-10.1); COR NA(FOR HYPERGLY) 140 mmol/L (136-145); CREATININE 0.57 mg/dL (0.55-1.02); SODIUM 139 mmol/L (136-145); TOTAL PROTEIN 7.6 g/dL (6.4-8.2); eGFR NON BLACK RACES > 60 (>60)
--- NOTE | 2020-09-13 06:47 | RAD ---
HISTORYPNEUMONIASTUDYCHEST, 1 [id number]/14/2020TECHNIQUEAP view of the chestFINDINGSCardiac and mediastinal contours appear normal. Mild improvement in previously seen diffuse bilateral airspace opacities. Suspect small right pleural effusion. No pneumothorax.IMPRESSIONMild continued improvement in airspace disease.Electronically signed by: Jordan Wiseman (Sep 13, 2020 06:45:46)
[2020-09-13] MEDS: PULMICORT NEB TX 0.5 MG NEB SCH ×2 (08:25→21:11)
[2020-09-13] MEDS: ZITHROMAX INJ 500 MG VIAL 500 MG in NS 250 ML IV 250 ML IV SCH (09:13)
[2020-09-13] MEDS: VSL#3 PO SCH (09:15)
[2020-09-13] MEDS: ROBITUSSIN DM PO SCH ×4 (09:16→21:59)
[2020-09-13] MEDS: ASPIRIN 81 MG CHEWTAB PO SCH (09:16)
[2020-09-13] MEDS: WELLBUTRIN SR 150 MG (BID) PO SCH ×2 (09:16→21:57)
[2020-09-13] MEDS: AVELOX IV 400 MG/250 ML BAG 400 MG/250 ML PIGGYBACK IV SCH (10:49)
[2020-09-13] MEDS: ACTOS PO SCH (11:43)
[2020-09-13] MEDS: VICTOZA SC SCH (21:00)
[2020-09-13] MEDS: NEURONTIN CAP 400 MG PO SCH (21:56)
[2020-09-13] MEDS: LIPITOR TAB 20 MG PO SCH (21:57)
[2020-09-13] MEDS: TRICOR TAB 160 MG PO SCH (21:58)
[2020-09-13] MEDS: SINGULAIR TAB 10 MG PO SCH (21:58)
[2020-09-13] MEDS: EFFEXOR XR 150 MG CAP 24-HR PO SCH (21:59)
[2020-09-14] MEDS: XOPENEX 1.25 MG/3 ML NEBULE NEB SCH ×4 (00:33→18:15)
[2020-09-14] MEDS: LR 1000 ML IV 1,000 ML IV SCH ×3 (03:02→20:23)
[2020-09-14] MEDS ORDERED: GLUCOPHAGE ONE ×2 (04:10→15:48)
[2020-09-14] MEDS: MERREM VIAL 500 MG in NS 100 ML IV + SPIKE MINIBAG* 100 ML IV SCH ×3 (06:02→22:00)
[2020-09-14] MEDS: NEURONTIN CAP 100 MG PO SCH ×2 (06:02→13:04)
[2020-09-14] MEDS: GLUCOPHAGE PO SCH ×2 (06:02→16:06)
--- NOTE | 2020-09-14 06:40 | RAD ---
HISTORYSOBSTUDYPortable AP [id number]/16/2020FINDINGSNo change in heart size or contour. Bilateral asymmetric airspace disease/pneumonia again noted, right greater than left, with suspect right pleural effusion.IMPRESSIONNo change in appearance of the chest since 09/13/2020.Electronically signed by: ASHLY GODDARD (Sep 14, 2020 06:38:55)
[2020-09-14 06:45] LABS: BASOPHILS # (AUTO) 0.1 X10^3/uL (0.0-0.1); BASOPHILS % (AUTO) 0.7 % (0.2-1.0); EOSINOPHILS # (AUTO) 0.3 x10^3/uL (0.0-0.2); HEMATOCRIT 26.5 % (36.0-47.0); HEMOGLOBIN 8.9 g/dL (12.0-16.0); LYMPHOCYTES # (AUTO) 1.6 X10^3/uL (1.3-2.9); LYMPHOCYTES % (AUTO) 11.5 % (21.0-51.0); MEAN CORPUSCULAR HEMOGLOBIN 28.8 pg (27.0-34.0); MEAN CORPUSCULAR HGB CONC 33.6 g/dL (33.0-35.0); MEAN CORPUSCULAR VOLUME 85.7 fL (80.0-100.0); MEAN PLATELET VOLUME 8.8 fL (7.4-11.0); MONOCYTES # (AUTO) 0.9 x10^3/uL (0.3-0.8); MONOCYTES % (AUTO) 6.5 % (0.0-13.0); NEUTROPHILS % (AUTO) 79.3 % (42.0-75.0); PLATELET COUNT 485 X10^3/uL (150.0-450.0); RED BLOOD COUNT 3.09 X10^6/uL (3.5-5.4); RED CELL DISTRIBUTION WIDTH 14.7 % (11.6-16.5); WHITE BLOOD COUNT 13.8 X10^3/uL (3.6-10.0)
[2020-09-14 07:01] LABS: ALANINE AMINOTRANSFERASE 31 Units/L (12-78); ALBUMIN 1.8 g/dL (3.4-5.0); ALKALINE PHOSPHATASE 98 Units/L (46-116); ASPARTATE AMINO TRANSFERASE 31 Units/L (15-37); BLOOD UREA NITROGEN 9 mg/dL (7-18); CALCIUM 8.8 mg/dL (8.5-10.1); CARBON DIOXIDE 32.4 mmol/L (21-32); CHLORIDE 98 mmol/L (98-107); COR CA(FOR HYPOALB) 10.6 mg/dL (8.5-10.1); COR NA(FOR HYPERGLY) 138 mmol/L (136-145); CREATININE 0.55 mg/dL (0.55-1.02); SODIUM 137 mmol/L (136-145); TOTAL PROTEIN 7.5 g/dL (6.4-8.2); eGFR NON BLACK RACES > 60 (>60)
[2020-09-14] MEDS ORDERED: MICRO K EXTEN CAP 10 MEQ PO PRN (07:16)
[2020-09-14] MEDS ORDERED: POTASSIUM CHLORIDE LIQ 20 MEQ UDC PO PRN (07:16)
[2020-09-14] MEDS ORDERED: POTASSIUM CHL 60 MEQ/NS 0.45% 500 ML IV PRN (07:16)
[2020-09-14] MEDS ORDERED: KLOR-CON PO PRN (07:16)
[2020-09-14] MEDS ORDERED: POTASSIUM CHL 40 MEQ/NS 0.45% 500 ML IV PRN (07:16)
[2020-09-14] MEDS ORDERED: K-RIDER 10 MEQ/NS 100 ML 10 MEQ/100 ML BAG IV PRN (07:16)
[2020-09-14] MEDS: ASPIRIN 81 MG CHEWTAB PO SCH (09:25)
[2020-09-14] MEDS: ZITHROMAX INJ 500 MG VIAL 500 MG in NS 250 ML IV 250 ML IV SCH (09:25)
[2020-09-14] MEDS: WELLBUTRIN SR 150 MG (BID) PO SCH ×2 (09:25→20:24)
[2020-09-14] MEDS: AVELOX IV 400 MG/250 ML BAG 400 MG/250 ML PIGGYBACK IV SCH (09:26)
[2020-09-14] MEDS: VSL#3 PO SCH (09:26)
[2020-09-14] MEDS: ROBITUSSIN DM PO SCH ×4 (09:26→20:25)
[2020-09-14] MEDS ORDERED: NS 250 ML IV 250 ML IV ONE (11:47)
[2020-09-14] MEDS: PULMICORT NEB TX 0.5 MG NEB SCH ×2 (12:26→20:45)
[2020-09-14] MEDS: ACTOS PO SCH (13:05)
[2020-09-14] MEDS: K-DUR TAB 20 MEQ PO PRN (15:48)
[2020-09-14] MEDS: MAG-OX TAB PO PRN ×2 (18:15→22:31)
[2020-09-14] MEDS: LIPITOR TAB 20 MG PO SCH (20:23)
[2020-09-14] MEDS: EFFEXOR XR 150 MG CAP 24-HR PO SCH (20:23)
[2020-09-14] MEDS: NEURONTIN CAP 400 MG PO SCH (20:24)
[2020-09-14] MEDS: VICTOZA SC SCH (20:24)
[2020-09-14] MEDS: TRICOR TAB 160 MG PO SCH (20:25)
[2020-09-14] MEDS: SINGULAIR TAB 10 MG PO SCH (20:25)
--- NOTE | 2020-09-14 21:14 | PCM.PROG ---
Progress Note - Progress Note for Day of Date of Exam: 09/14/20 - Subjective Subjective: IS A 54 YEAR OLD PATIENT OF . SHE IS CURRENTLY BEING TREATED FOR PNEUMONIA. TODAY, SHE IS ALERT AND ORIENTED, LYING IN BED ON MORNING ROUNDS. SHE CONTINUES WITH SHORTNESS OF BREATH AND INTERMITTENT COUGH TODAY. SHE IS CURRENTLY ON ROOM AIR, BUT HAS UTILIZED THE BIPAP THROUGHOUT THE NIGHT. ON EXAMINATION, HEART IS REGULAR IN RATE AND RHYTHM. BILATERAL LUNGS ARE NOTED WITH DIMINISHED LUNG SOUNDS THROUGHOUT. ABDOMEN IS ROUND, SOFT AND NON- TENDER WITH NORMAL BOWEL SOUNDS NOTED IN ALL QUADRANTS. HER VITALS THIS MORNING ARE: 98.5-98-22-100%-160/93. HER SATURATIONS HAVE REMAINED IN THE 90s. LABS WERE OBTAINED. ABNORMAL LAB VALUES INCLUDE THE FOLLOWING: WBC 13.8, RBC 3.09, HGB 8.9, HCT 26.5, PLT COUNT 485, POTASSIUM 3.3, CARBON DIOXIDE 32.4, GLUCOSE 149, MAGNESIUM 1.3, ALBUMIN 1.8. SPUTUM CULTURE IS PENDING. CHEST XRAY REVEALED:No change in heart size or contour. Bilateral asymmetric airspace disease/pneumonia again noted, right greater than left, with suspect right pleural effusion. SHE IS CURRENTLY RECEIVING AZITHROMYCIN AVELOX, MEROPENEM, XOPENEX NEB TX Q6, LR AT 150 ML/HR, AND THE POTASSIUM AND MAGNESIUM PROTOCOL. SEVERAL OF HER HOME MEDICATIONS WERE RESUMED BY . WE WILL CONTINUE WITH CURRENT PLAN OF CARE TODAY. OTHERWISE, WE WILL FOLLOW UP WITH AM LABS AND CONTINUE TO MONITOR. - Past Medical Family Social History Past Med/Fam/Surg Hx: No changes since H&P Allergies: Allergies No Known Drug Allergies Allergy (Verified 07/08/20 10:44) - Review of Systems ROS: No change since H&P - Vital Signs and I&O's Vital Signs: Temperature 98.0 F Pulse Rate [Apical] 92 Pulse Rate 98 Respiratory Rate 24 Blood Pressure [Right Arm] 136/75 Blood Pressure 110/61 O2 Sat by Pulse Oximetry 100 Intake and Output: Intake & Output 09/12/20 09/13/20 09/14/20 09/15/20 11:59 11:59 11:59 11:59 Intake Total 2799 / 2799 5176 / 5176 3015 / 3015 1574 / 1574 Balance 2799 / 2799 5176 / 5176 3015 / 3015 1574 / 1574 - Physical Exam Oriented: Normal Eyes: Normal Ear: Normal Nose: Normal Throat: Normal Respiratory: Generalized, Diminished Cardiovascular: Normal : Normal Auscultation: Bowel Sounds: Normal Palpation: Normal Tenderness: Normal Skin: Normal Musculoskeletal: Normal Psychiatric: Normal Mood Description: Calm Affect: Normal Speech Pattern: Clear - Laboratory and Diagnostics Result Diagrams: 09/14/20 05:58 09/14/20 05:58 Labs: 09/08/20 18:18 Blood Blood Culture - Final 09/08/20 17:04 Blood Blood Culture - Final 09/09/20 10:40 Sputum - Expectorated Sputum Sputum Culture - Preliminary 09/09/20 10:40 Sputum - Expectorated Sputum - Final Laboratory WBC 13.8 X10^3/uL (3.6-10.0) H 09/14/20 05:58 RBC 3.09 X10^6/uL (3.5-5.4) L 09/14/20 05:58 Hgb 8.9 g/dL (12.0-16.0) L 09/14/20 05:58 Hct 26.5 % (36.0-47.0) L 09/14/20 05:58 MCV 85.7 fL (80.0-100.0) 09/14/20 05:58 MCH 28.8 pg (27.0-34.0) 09/14/20 05:58 MCHC 33.6 g/dL (33.0-35.0) 09/14/20 05:58 RDW 14.7 % (11.6-16.5) 09/14/20 05:58 Plt Count 485 X10^3/uL (150.0-450.0) H 09/14/20 05:58 Plt Count Comment Adequate (ADEQUATE) 09/11/20 05:38 MPV 8.8 fL (7.4-11.0) 09/14/20 05:58 Neut % (Auto) 79.3 % (42.0-75.0) H 09/14/20 05:58 Lymph % (Auto) 11.5 % (21.0-51.0) L 09/14/20 05:58 [place] % (Auto) 6.5 % (0.0-13.0) 09/14/20 05:58 Eos % (Auto) 2.0 % (0.9-2.9) 09/14/20 05:58 Baso % (Auto) 0.7 % (0.2-1.0) 09/14/20 05:58 Neut # (Auto) 11.0 x10^3/uL (2.2-4.8) H 09/14/20 05:58 Lymph # (Auto) 1.6 X10^3/uL (1.3-2.9) 09/14/20 05:58 [place] # (Auto) 0.9 x10^3/uL (0.3-0.8) H 09/14/20 05:58 Eos # (Auto) 0.3 x10^3/uL (0.0-0.2) H 09/14/20 05:58 Baso # (Auto) 0.1 X10^3/uL (0.0-0.1) 09/14/20 05:58 Absolute Nucleated RBC 0.1 /100WBC 09/14/20 05:58 Total Counted 100 09/11/20 05:38 Neutrophils % (Manual) 88 % (39-76) H 09/11/20 05:38 Band Neutrophils % 2 % (0-10) 09/11/20 05:38 Lymphocytes % (Manual) 8 % (13-43) L 09/11/20 05:38 Monocytes % (Manual) 2 % (4-9) L 09/11/20 05:38 Eosinophils % (Manual) Rod Tape Operator 09/10/20 05:20 Plt Morphology Comment Normal (NORMAL) 09/11/20 05:38 RBC Morphology Normal (NORMAL) 09/11/20 05:38 PT 13.7 SECONDS (11.8-14.3) 09/08/20 14:42 INR Target Range - 09/08/20 14:42 INR 1.08 (0.8-1.3) 09/08/20 14:42 APTT 37.8 SECONDS (22.9-36.5) H 09/08/20 14:42 PTT Comment - 09/08/20 14:42 D-Dimer 2.36 ug/ml (0.0-0.57) H* 09/08/20 14:42 Sample Site Rr 09/08/20 18:27 ABG pH 7.360 (7.35-7.45) 09/08/20 18:27 ABG pCO2 43.0 mmHg (35.0-45.0) 09/08/20 18:27 ABG pO2 63.0 mmHg (80.0-100.0) L 09/08/20 18:27 ABG HCO3 24.3 mmol/L (22-26) 09/08/20 18:27 ABG O2 Saturation 91.0 % (90-100) 09/08/20 18:27 ABG Base Excess -1.3 mmol/L (-2.0-2.0) 09/08/20 18:27 Matt Test Pos 09/08/20 18:27 A-a Gradient 83.0 mmHg 09/08/20 18:27 FiO2 28 09/08/20 18:27 Blood Gas Comments Mihai well sw 09/08/20 18:27 Sodium 137 mmol/L (136-145) 09/14/20 05:58 Corrected Sodium 138 mmol/L (136-145) 09/14/20 05:58 Potassium 3.3 mmol/L (3.5-5.1) L 09/14/20 05:58 Chloride 98 mmol/L (98-107) 09/14/20 05:58 Carbon Dioxide 32.4 mmol/L (21-32) H 09/14/20 05:58 BUN 9 mg/dL (7-18) 09/14/20 05:58 Creatinine 0.55 mg/dL (0.55-1.02) 09/14/20 05:58 Est GFR (MDRD) Af Amer > 60 (>60) 09/14/20 05:58 Est GFR (MDRD) Non-Af > 60 (>60) 09/14/20 05:58 Glucose 149 mg/dL (65-99) H 09/14/20 05:58 POC Glucose (mg/dL) 120 mg/dL (65-99) H 09/14/20 15:56 Calcium 8.8 mg/dL (8.5-10.1) 09/14/20 05:58 Corrected Calcium 10.6 mg/dL (8.5-10.1) H 09/14/20 05:58 Magnesium 1.3 mg/dL (1.7-2.9) L 09/14/20 05:58 Total Bilirubin 0.40 mg/dL (0.2-1.0) 09/14/20 05:58 AST 31 Units/L (15-37) 09/14/20 05:58 ALT 31 Units/L (12-78) 09/14/20 05:58 Alkaline Phosphatase 98 Units/L (46-116) 09/14/20 05:58 Creatine Kinase 43 Units/L (26-192) 09/09/20 05:28 CK-MB (CK-2) < 1.0 ng/mL (0-4.0) 09/09/20 05:28 CK/CKMB % Calc 2.3 % (<4) 09/09/20 05:28 Troponin I < 0.02 ng/mL (0-1.5) 09/09/20 05:28 B-Natriuretic Peptide 16.5 pg/mL (0-79) 09/08/20 14:00 Total Protein 7.5 g/dL (6.4-8.2) 09/14/20 05:58 Albumin 1.8 g/dL (3.4-5.0) L 09/14/20 05:58 Globulin 5.7 g/dL (2.5-4.5) H 09/14/20 05:58 Albumin/Globulin Ratio 0.3 Ratio (1.1-2.1) L 09/14/20 05:58 Amylase 66 Units/L (25-115) 09/08/20 14:00 Lipase 97 Units/L (73-393) 09/08/20 14:00 SARS-CoV-2 (PCR) Negative (NEGATIVE) 09/08/20 16:58 Miscellaneous Test Covid 19 09/08/20 18:50 - Plan (1) Pneumonia Status: Acute Qualifiers: Pneumonia type: due to unspecified organism Laterality: bilateral Lung location: unspecified part of lung Qualified Code(s): J18.9 - Pneumonia, unspecified organism
[2020-09-15] MEDS: XOPENEX 1.25 MG/3 ML NEBULE NEB SCH ×4 (00:35→17:30)
[2020-09-15] MEDS: LR 1000 ML IV 1,000 ML IV SCH ×4 (04:17→21:30)
[2020-09-15] MEDS ORDERED: GLUCOPHAGE ONE ×2 (05:10→17:04)
[2020-09-15] MEDS: MERREM VIAL 500 MG in NS 100 ML IV + SPIKE MINIBAG* 100 ML IV SCH ×3 (06:00→21:25)
[2020-09-15] MEDS: GLUCOPHAGE PO SCH ×2 (06:00→17:11)
[2020-09-15] MEDS: NEURONTIN CAP 100 MG PO SCH ×2 (06:00→12:38)
[2020-09-15] MEDS: HumuLIN R SUBCUT PRN ×2 (06:01→21:57)
--- NOTE | 2020-09-15 06:35 | RAD ---
HISTORYSOBSTUDYCHEST, 1 [id number]/17/2020FINDINGSTrachea is midline. Heart size enlarged. Consolidation within right lung base represents combination of layering effusion atelectasis and or infiltrate. Bilateral peribronchial thickening and interstitial opacities are similar prior exam. No pneumothorax.IMPRESSIONIncreased consolidation within the right lung base represents combination of layering effusion, atelectasis and/or infiltrate.Bilateral increased interstitial opacities and peribronchial thickening likely in setting of viral/atypical pneumonia. Pulmonary edema is also possible.Stable cardiomegaly.Electronically signed by: LILLIAM DE LA ROSA (Sep 15, 2020 06:33:14)
[2020-09-15 07:09] LABS: BASOPHILS # (AUTO) 0.1 X10^3/uL (0.0-0.1); BASOPHILS % (AUTO) 0.6 % (0.2-1.0); EOSINOPHILS # (AUTO) 0.3 x10^3/uL (0.0-0.2); HEMATOCRIT 27.3 % (36.0-47.0); HEMOGLOBIN 9.1 g/dL (12.0-16.0); LYMPHOCYTES # (AUTO) 1.4 X10^3/uL (1.3-2.9); LYMPHOCYTES % (AUTO) 10.3 % (21.0-51.0); MEAN CORPUSCULAR HEMOGLOBIN 28.3 pg (27.0-34.0); MEAN CORPUSCULAR HGB CONC 33.1 g/dL (33.0-35.0); MEAN CORPUSCULAR VOLUME 85.4 fL (80.0-100.0); MEAN PLATELET VOLUME 8.4 fL (7.4-11.0); MONOCYTES # (AUTO) 0.8 x10^3/uL (0.3-0.8); MONOCYTES % (AUTO) 6.3 % (0.0-13.0); NEUTROPHILS # (AUTO) 10.9 x10^3/uL (2.2-4.8); NEUTROPHILS % (AUTO) 80.8 % (42.0-75.0); PLATELET COUNT 474 X10^3/uL (150.0-450.0); RED CELL DISTRIBUTION WIDTH 14.8 % (11.6-16.5); WHITE BLOOD COUNT 13.5 X10^3/uL (3.6-10.0)
[2020-09-15 07:30] LABS: ALANINE AMINOTRANSFERASE 37 Units/L (12-78); ALBUMIN 1.8 g/dL (3.4-5.0); ALKALINE PHOSPHATASE 100 Units/L (46-116); ASPARTATE AMINO TRANSFERASE 33 Units/L (15-37); BLOOD UREA NITROGEN 6 mg/dL (7-18); CALCIUM 8.7 mg/dL (8.5-10.1); CARBON DIOXIDE 32.9 mmol/L (21-32); CHLORIDE 99 mmol/L (98-107); COR CA(FOR HYPOALB) 10.5 mg/dL (8.5-10.1); COR NA(FOR HYPERGLY) 140 mmol/L (136-145); CREATININE 0.61 mg/dL (0.55-1.02); MAGNESIUM 1.5 mg/dL (1.7-2.9); SODIUM 138 mmol/L (136-145); TOTAL PROTEIN 7.5 g/dL (6.4-8.2); eGFR NON BLACK RACES > 60 (>60)
[2020-09-15] MEDS: ASPIRIN 81 MG CHEWTAB PO SCH (08:38)
[2020-09-15] MEDS: ROBITUSSIN DM PO SCH ×4 (08:39→21:30)
[2020-09-15] MEDS: VSL#3 PO SCH (08:39)
[2020-09-15] MEDS: WELLBUTRIN SR 150 MG (BID) PO SCH ×2 (08:39→21:30)
[2020-09-15] MEDS: ZITHROMAX INJ 500 MG VIAL 500 MG in NS 250 ML IV 250 ML IV SCH (08:40)
[2020-09-15] MEDS: PULMICORT NEB TX 0.5 MG NEB SCH ×2 (09:16→21:00)
[2020-09-15] MEDS: ALBUMIN HUMAN 25%- 100 ML 100 ML IV SCH (10:40)
[2020-09-15] MEDS: AVELOX IV 400 MG/250 ML BAG 400 MG/250 ML PIGGYBACK IV SCH (10:42)
--- NOTE | 2020-09-15 12:13 | PCM.PROG ---
Progress Note - Progress Note for Day of Date of Exam: 09/15/20 - Subjective Subjective: IS A 54 YEAR OLD PATIENT OF . SHE IS CURRENTLY BEING TREATED FOR PNEUMONIA. TODAY, SHE IS ALERT AND ORIENTED, LYING IN BED ON MORNING ROUNDS. SHE CONTINUES WITH SHORTNESS OF BREATH AND INTERMITTENT COUGH TODAY. SHE REPORTS THAT SHORTNESS OF BREATH IS WORSE TODAY. SHE HAS JUST BEEN PLACED ON THE VENTI MASK. SHE HAS UTILIZED THE BIPAP THROUGHOUT THE NIGHT. ON EXAMINATION, HEART IS REGULAR IN RATE AND RHYTHM. BILATERAL LUNGS ARE NOTED WITH DIMINISHED LUNG SOUNDS THROUGHOUT. ABDOMEN IS ROUND, SOFT AND NON-TENDER WITH NORMAL BOWEL SOUNDS NOTED IN ALL QUADRANTS. HER VITALS THIS MORNING ARE: 97.6-88-28-100%-145/74. HER SATURATIONS HAVE REMAINED IN THE 90s. LABS WERE OBTAINED. ABNORMAL LAB VALUES INCLUDE THE FOLLOWING: WBC 13.5, RBC 3.20, HGB 9.1, HCT 27.3, PLT COUNT 474, CARBON DIOXIDE 32.9, BUN 6, GLUCOSE 199, MAGNESIUM 1.5, FERRITIN 309, LACTATE DEHYDROGENASE 461, CRP 156.80, ALBUMIN 1.8, GLOBULIN 5.7. THROAT CULTURE DID REVEAL THAT PATIENT IS POSITIVE FOR RSV AND S TREPTOCOCCUS PNEUMONIAE. SPUTUM CULTURE IS PENDING. CHEST XRAY REVEALED: Increased consolidation within the right lung base represents combination of layering effusion, atelectasis and/or infiltrate. Bilateral increased interstitial opacities and peribronchial thickening likely in setting of viral/a typical pneumonia. Pulmonary edema is also possible. Stable cardiomegaly. SHE IS CURRENTLY RECEIVING AZITHROMYCIN AVELOX, MEROPENEM, XOPENEX NEB [place] Q6, LR AT 150 ML/HR, AND THE POTASSIUM AND MAGNESIUM PROTOCOL. SEVERAL OF HER HOME MEDICATIONS WERE RESUMED BY . WE WILL START SOLU-MEDROL 40MG IV Q8H AND ALBUMIN 25% IV DAILY TODAY. OTHERWISE, WE WILL FOLLOW UP WITH AM LABS AND CONTINUE TO MONITOR. - Past Medical Family Social History Past Med/Fam/Surg Hx: No changes since H&P Allergies: Allergies No Known Drug Allergies Allergy (Verified 07/08/20 10:44) - Review of Systems ROS: No change since H&P - Vital Signs and I&O's Vital Signs: Temperature 97.6 F Pulse Rate [Apical] 88 Pulse Rate 96 Respiratory Rate 28 Blood Pressure [Right Arm] 145/74 Blood Pressure 110/61 O2 Sat by Pulse Oximetry 96 Intake and Output: Intake & Output 09/13/20 09/14/20 09/15/20 09/16/20 11:59 11:59 11:59 11:59 Intake Total 6 / 6 3015 / 3015 5394 / 5394 Balance 5175 / 6 3015 / 3015 5394 / 5394 - Physical Exam Oriented: Normal Eyes: Normal Ear: Normal Nose: Normal Throat: Normal Respiratory: Generalized, Diminished Cardiovascular: Normal : Normal Auscultation: Bowel Sounds: Normal Palpation: Normal Tenderness: Normal Skin: Normal Musculoskeletal: Normal Psychiatric: Normal Mood Description: Calm Affect: Normal Speech Pattern: Clear - Laboratory and Diagnostics Result Diagrams: 09/15/20 06:09 09/15/20 06:09 Labs: 09/08/20 18:18 Blood Blood Culture - Final 09/08/20 17:04 Blood Blood Culture - Final 09/09/20 10:40 Sputum - Expectorated Sputum Sputum Culture - Preliminary 09/09/20 10:40 Sputum - Expectorated Sputum - Final Laboratory WBC 13.5 X10^3/uL (3.6-10.0) H 09/15/20 06:09 RBC 3.20 X10^6/uL (3.5-5.4) L 09/15/20 06:09 Hgb 9.1 g/dL (12.0-16.0) L 09/15/20 06:09 Hct 27.3 % (36.0-47.0) L 09/15/20 06:09 MCV 85.4 fL (80.0-100.0) 09/15/20 06:09 MCH 28.3 pg (27.0-34.0) 09/15/20 06:09 MCHC 33.1 g/dL (33.0-35.0) 09/15/20 06:09 RDW 14.8 % (11.6-16.5) 09/15/20 06:09 Plt Count 474 X10^3/uL (150.0-450.0) H 09/15/20 06:09 Plt Count Comment Adequate (ADEQUATE) 09/11/20 05:38 MPV 8.4 fL (7.4-11.0) 09/15/20 06:09 Neut % (Auto) 80.8 % (42.0-75.0) H 09/15/20 06:09 Lymph % (Auto) 10.3 % (21.0-51.0) L 09/15/20 06:09 [place] % (Auto) 6.3 % (0.0-13.0) 09/15/20 06:09 Eos % (Auto) 2.0 % (0.9-2.9) 09/15/20 06:09 Baso % (Auto) 0.6 % (0.2-1.0) 09/15/20 06:09 Neut # (Auto) 10.9 x10^3/uL (2.2-4.8) H 09/15/20 06:09 Lymph # (Auto) 1.4 X10^3/uL (1.3-2.9) 09/15/20 06:09 [place] # (Auto) 0.8 x10^3/uL (0.3-0.8) 09/15/20 06:09 Eos # (Auto) 0.3 x10^3/uL (0.0-0.2) H 09/15/20 06:09 Baso # (Auto) 0.1 X10^3/uL (0.0-0.1) 09/15/20 06:09 Absolute Nucleated RBC 0.0 /100WBC 09/15/20 06:09 Total Counted 100 09/11/20 05:38 Neutrophils % (Manual) 88 % (39-76) H 09/11/20 05:38 Band Neutrophils % 2 % (0-10) 09/11/20 05:38 Lymphocytes % (Manual) 8 % (13-43) L 09/11/20 05:38 Monocytes % (Manual) 2 % (4-9) L 09/11/20 05:38 Eosinophils % (Manual) Acid Polymerization Operator 09/10/20 05:20 Plt Morphology Comment Normal (NORMAL) 09/11/20 05:38 RBC Morphology Normal (NORMAL) 09/11/20 05:38 PT 13.7 SECONDS (11.8-14.3) 09/08/20 14:42 INR Target Range - 09/08/20 14:42 INR 1.08 (0.8-1.3) 09/08/20 14:42 APTT 37.8 SECONDS (22.9-36.5) H 09/08/20 14:42 PTT Comment - 09/08/20 14:42 D-Dimer 2.36 ug/ml (0.0-0.57) H* 09/08/20 14:42 Sample Site Rr 09/08/20 18:27 ABG pH 7.360 (7.35-7.45) 09/08/20 18:27 ABG pCO2 43.0 mmHg (35.0-45.0) 09/08/20 18:27 ABG pO2 63.0 mmHg (80.0-100.0) L 09/08/20 18: ABG HCO3 24.3 mmol/L (22-26) 09/08/20 18:27 ABG O2 Saturation 91.0 % (90-100) 09/08/20 18:27 ABG Base Excess -1.3 mmol/L (-2.0-2.0) 09/08/20 18:27 Matt Test Pos 09/08/20 18:27 A-a Gradient 83.0 mmHg 09/08/20 18:27 FiO2 28 09/08/20 18:27 Blood Gas Comments Mihai well sw 09/08/20 18:27 Sodium 138 mmol/L (136-145) 09/15/20 06:09 Corrected Sodium 140 mmol/L (136-145) 09/15/20 06:09 Potassium 3.7 mmol/L (3.5-5.1) 09/15/20 06:09 Chloride 99 mmol/L (98-107) 09/15/20 06:09 Carbon Dioxide 32.9 mmol/L (21-32) H 09/15/20 06:09 BUN 6 mg/dL (7-18) L 09/15/20 06:09 Creatinine 0.61 mg/dL (0.55-1.02) 09/15/20 06:09 Est GFR (MDRD) Af Amer > 60 (>60) 09/15/20 06:09 Est GFR (MDRD) Non-Af > 60 (>60) 09/15/20 06:09 Glucose 199 mg/dL (65-99) H 09/15/20 06:09 POC Glucose (mg/dL) 145 mg/dL (65-99) H 09/15/20 12:00 Calcium 8.7 mg/dL (8.5-10.1) 09/15/20 06:09 Corrected Calcium 10.5 mg/dL (8.5-10.1) H 09/15/20 06:09 Magnesium 1.5 mg/dL (1.7-2.9) L 09/15/20 06:09 Ferritin 309 ng/mL (8-252) H 09/15/20 06:09 Total Bilirubin 0.30 mg/dL (0.2-1.0) 09/15/20 06:09 AST 33 Units/L (15-37) 09/15/20 06:09 ALT 37 Units/L (12-78) 09/15/20 06:09 Alkaline Phosphatase 100 Units/L (46-116) 09/15/20 06:09 Lactate Dehydrogenase 461 Units/L (81-234) H 09/15/20 06:09 Creatine Kinase 43 Units/L (26-192) 09/09/20 05:28 CK-MB (CK-2) < 1.0 ng/mL (0-4.0) 09/09/20 05:28 CK/CKMB % Calc 2.3 % (<4) 09/09/20 05:28 Troponin I < 0.02 ng/mL (0-1.5) 09/09/20 05:28 C-Reactive Protein 156.80 mg/L (0-3.0) H 09/15/20 06:09 B-Natriuretic Peptide 16.5 pg/mL (0-79) 09/08/20 14:00 Total Protein 7.5 g/dL (6.4-8.2) 09/15/20 06:09 Albumin 1.8 g/dL (3.4-5.0) L 09/15/20 06:09 Globulin 5.7 g/dL (2.5-4.5) H 09/15/20 06:09 Albumin/Globulin Ratio 0.3 Ratio (1.1-2.1) L 09/15/20 06:09 Amylase 66 Units/L (25-115) 09/08/20 14:00 Lipase 97 Units/L (73-393) 09/08/20 14:00 SARS-CoV-2 (PCR) Negative (NEGATIVE) 09/08/20 16:58 Miscellaneous Test Covid 19 09/08/20 18:50 - Plan (1) Pneumonia Status: Acute Qualifiers: Pneumonia type: due to unspecified organism Laterality: bilateral Lung location: unspecified part of lung Qualified Code(s): J18.9 - Pneumonia, unspecified organism (2) RSV (acute bronchiolitis due to respiratory syncytial virus) Status: Acute
[2020-09-15] MEDS: ACTOS PO SCH (12:37)
[2020-09-15] MEDS: SOLU-Medrol 40 MG VIAL IVP SCH ×3 (12:38→21:40)
[2020-09-15] MEDS: K-DUR TAB 20 MEQ PO PRN (13:38)
[2020-09-15] MEDS: SINGULAIR TAB 10 MG PO SCH (21:30)
[2020-09-15] MEDS: EFFEXOR XR 150 MG CAP 24-HR PO SCH (21:30)
[2020-09-15] MEDS: NEURONTIN CAP 400 MG PO SCH (21:30)
[2020-09-15] MEDS: LIPITOR TAB 20 MG PO SCH (21:30)
[2020-09-15] MEDS: TRICOR TAB 160 MG PO SCH (21:30)
[2020-09-15] MEDS: VICTOZA SC SCH (21:33)
[2020-09-16] MEDS: XOPENEX 1.25 MG/3 ML NEBULE NEB SCH ×5 (00:10→23:40)
[2020-09-16] MEDS: LR 1000 ML IV 1,000 ML IV SCH ×2 (05:09→14:32)
[2020-09-16] MEDS ORDERED: GLUCOPHAGE ONE ×2 (05:19→17:29)
--- NOTE | 2020-09-16 05:20 | RAD ---
HISTORYSOBSTUDYCHEST, 1 [id number]/18/2020FINDINGSThe trachea is midline. The cardiac silhouette is mildly prominent, similar to prior exam.. No significant interval change in bilateral pulmonary opacities/infiltrates and right pleural effusion versus pleural thickening.. The bony thorax is stableIMPRESSIONNo appreciable interval change.Electronically signed by: Dayna Stallworth (Sep 16, 2020 05:18:14)
[2020-09-16] MEDS: NEURONTIN CAP 100 MG PO SCH ×2 (05:47→12:16)
[2020-09-16] MEDS: SOLU-Medrol 40 MG VIAL IVP SCH (05:47)
[2020-09-16] MEDS: MERREM VIAL 500 MG in NS 100 ML IV + SPIKE MINIBAG* 100 ML IV SCH ×3 (05:48→21:00)
[2020-09-16] MEDS: HumuLIN R SUBCUT PRN ×2 (05:59→11:57)
[2020-09-16] MEDS: GLUCOPHAGE PO SCH ×2 (06:00→17:32)
[2020-09-16 06:20] LABS: BASOPHILS # (AUTO) 0.1 X10^3/uL (0.0-0.1); BASOPHILS % (AUTO) 0.5 % (0.2-1.0); HEMATOCRIT 27.4 % (36.0-47.0); HEMOGLOBIN 9.1 g/dL (12.0-16.0); LYMPHOCYTES # (AUTO) 1.5 X10^3/uL (1.3-2.9); LYMPHOCYTES % (AUTO) 8.7 % (21.0-51.0); MEAN CORPUSCULAR HEMOGLOBIN 28.2 pg (27.0-34.0); MEAN CORPUSCULAR HGB CONC 33.2 g/dL (33.0-35.0); MEAN CORPUSCULAR VOLUME 84.8 fL (80.0-100.0); MEAN PLATELET VOLUME 8.2 fL (7.4-11.0); MONOCYTES # (AUTO) 0.8 x10^3/uL (0.3-0.8); MONOCYTES % (AUTO) 4.6 % (0.0-13.0); NEUTROPHILS # (AUTO) 15.2 x10^3/uL (2.2-4.8); NEUTROPHILS % (AUTO) 86.2 % (42.0-75.0); PLATELET COUNT 495 X10^3/uL (150.0-450.0); RED BLOOD COUNT 3.23 X10^6/uL (3.5-5.4); RED CELL DISTRIBUTION WIDTH 14.6 % (11.6-16.5); WHITE BLOOD COUNT 17.7 X10^3/uL (3.6-10.0)
[2020-09-16 06:34] LABS: ALANINE AMINOTRANSFERASE 41 Units/L (12-78); ALBUMIN 2.1 g/dL (3.4-5.0); ALKALINE PHOSPHATASE 98 Units/L (46-116); ASPARTATE AMINO TRANSFERASE 34 Units/L (15-37); BLOOD UREA NITROGEN 6 mg/dL (7-18); CALCIUM 8.9 mg/dL (8.5-10.1); CARBON DIOXIDE 31.3 mmol/L (21-32); CHLORIDE 98 mmol/L (98-107); COR CA(FOR HYPOALB) 10.4 mg/dL (8.5-10.1); COR NA(FOR HYPERGLY) 141 mmol/L (136-145); CREATININE 0.54 mg/dL (0.55-1.02); SODIUM 138 mmol/L (136-145); TOTAL PROTEIN 7.6 g/dL (6.4-8.2); eGFR NON BLACK RACES > 60 (>60)
[2020-09-16] MEDS: ASPIRIN 81 MG CHEWTAB PO SCH (09:48)
[2020-09-16] MEDS: ROBITUSSIN DM PO SCH ×4 (09:48→20:58)
[2020-09-16] MEDS: VSL#3 PO SCH (09:49)
[2020-09-16] MEDS: ALBUMIN HUMAN 25%- 100 ML 100 ML IV SCH (09:52)
[2020-09-16] MEDS: WELLBUTRIN SR 150 MG (BID) PO SCH ×2 (09:54→20:58)
[2020-09-16] MEDS: PULMICORT NEB TX 0.5 MG NEB SCH ×2 (10:00→23:40)
[2020-09-16] MEDS: ACTOS PO SCH (12:16)
[2020-09-16] MEDS: AVELOX IV 400 MG/250 ML BAG 400 MG/250 ML PIGGYBACK IV SCH (14:00)
[2020-09-16] MEDS: LIPITOR TAB 20 MG PO SCH (20:58)
[2020-09-16] MEDS: NEURONTIN CAP 400 MG PO SCH (20:58)
[2020-09-16] MEDS: VICTOZA SC SCH (20:58)
[2020-09-16] MEDS: SINGULAIR TAB 10 MG PO SCH (20:58)
[2020-09-16] MEDS: TRICOR TAB 160 MG PO SCH (20:58)
[2020-09-16] MEDS: EFFEXOR XR 150 MG CAP 24-HR PO SCH (20:58)
[2020-09-17] MEDS: LR 1000 ML IV 1,000 ML IV SCH ×4 (00:30→21:00)
[2020-09-17] MEDS: XOPENEX 1.25 MG/3 ML NEBULE NEB SCH ×3 (05:00→17:15)
--- NOTE | 2020-09-17 05:40 | RAD ---
HISTORYSOBSTUDYCHEST, 1 [id number]/19/2020FINDINGSThe trachea is midline. The cardiac silhouette is stable. Patchy bilateral pulmonary opacities/infiltrates, unchanged compared to prior exam. Small right pleural effusion persists. Elevation of the right hemidiaphragm with basilar atelectasis/consolidation again seen.. The bony thorax is unremarkable.IMPRESSIONNo significant interval change.Electronically signed by: Dayna Stallworth (Sep 17, 2020 05:38:48)
[2020-09-17] MEDS ORDERED: GLUCOPHAGE ONE ×2 (05:50→16:52)
[2020-09-17] MEDS: GLUCOPHAGE PO SCH ×2 (06:15→17:08)
[2020-09-17] MEDS: MERREM VIAL 500 MG in NS 100 ML IV + SPIKE MINIBAG* 100 ML IV SCH ×3 (06:15→23:13)
[2020-09-17] MEDS: NEURONTIN CAP 100 MG PO SCH ×2 (06:16→11:52)
[2020-09-17 06:30] LABS: BASOPHILS # (AUTO) 0.2 X10^3/uL (0.0-0.1); EOSINOPHILS # (AUTO) 0.3 x10^3/uL (0.0-0.2); EOSINOPHILS % (AUTO) 1.9 % (0.9-2.9); HEMATOCRIT 25.2 % (36.0-47.0); HEMOGLOBIN 8.3 g/dL (12.0-16.0); LYMPHOCYTES # (AUTO) 2.3 X10^3/uL (1.3-2.9); LYMPHOCYTES % (AUTO) 13.5 % (21.0-51.0); MEAN CORPUSCULAR HEMOGLOBIN 27.8 pg (27.0-34.0); MEAN CORPUSCULAR HGB CONC 32.7 g/dL (33.0-35.0); MEAN CORPUSCULAR VOLUME 84.9 fL (80.0-100.0); MEAN PLATELET VOLUME 8.6 fL (7.4-11.0); MONOCYTES # (AUTO) 1.2 x10^3/uL (0.3-0.8); MONOCYTES % (AUTO) 7.1 % (0.0-13.0); NEUTROPHILS # (AUTO) 13.3 x10^3/uL (2.2-4.8); NEUTROPHILS % (AUTO) 76.5 % (42.0-75.0); PLATELET COUNT 481 X10^3/uL (150.0-450.0); RED BLOOD COUNT 2.97 X10^6/uL (3.5-5.4); WHITE BLOOD COUNT 17.3 X10^3/uL (3.6-10.0)
[2020-09-17 06:49] LABS: ALANINE AMINOTRANSFERASE 30 Units/L (12-78); ALBUMIN 2.1 g/dL (3.4-5.0); ALKALINE PHOSPHATASE 86 Units/L (46-116); ASPARTATE AMINO TRANSFERASE 18 Units/L (15-37); BLOOD UREA NITROGEN 7 mg/dL (7-18); CALCIUM 8.4 mg/dL (8.5-10.1); CARBON DIOXIDE 30.8 mmol/L (21-32); CHLORIDE 100 mmol/L (98-107); COR CA(FOR HYPOALB) 9.9 mg/dL (8.5-10.1); COR NA(FOR HYPERGLY) 141 mmol/L (136-145); CREATININE 0.64 mg/dL (0.55-1.02); SODIUM 139 mmol/L (136-145); eGFR NON BLACK RACES > 60 (>60)
[2020-09-17 07:09] LABS: HYPOCHROMASIA SLIGHT; PLATELET MORPHOLOGY COMMENT NORMAL (NORMAL)
[2020-09-17] MEDS: PULMICORT NEB TX 0.5 MG NEB SCH ×2 (08:37→20:38)
[2020-09-17] MEDS: ALBUMIN HUMAN 25%- 100 ML 100 ML IV SCH (08:42)
[2020-09-17] MEDS: ASPIRIN 81 MG CHEWTAB PO SCH (08:43)
[2020-09-17] MEDS: ROBITUSSIN DM PO SCH ×4 (08:43→20:59)
[2020-09-17] MEDS: VSL#3 PO SCH (08:43)
[2020-09-17] MEDS: WELLBUTRIN SR 150 MG (BID) PO SCH ×2 (08:44→20:58)
[2020-09-17] MEDS ORDERED: MAGNESIUM SULFATE 1 GRAM/100 mL PREMIX 2 G/200 ML BAG IV SCH (08:49)
[2020-09-17] MEDS: AVELOX IV 400 MG/250 ML BAG 400 MG/250 ML PIGGYBACK IV SCH (09:15)
[2020-09-17] MEDS: K-DUR TAB 20 MEQ PO SCH ×2 (09:51→20:58)
[2020-09-17] MEDS: MAGNESIUM SULFATE 1 GRAM/100 mL PREMIX 2 G/200 ML BAG IV SCH ×2 (11:02→12:53)
[2020-09-17] MEDS: ACTOS PO SCH (11:51)
[2020-09-17] MEDS ORDERED: NS 250 ML IV 250 ML IV ONE ×3 (13:59→20:14)
[2020-09-17] MEDS: HumuLIN R SUBCUT PRN (17:29)
[2020-09-17] MEDS: EFFEXOR XR 150 MG CAP 24-HR PO SCH (20:57)
[2020-09-17] MEDS: LIPITOR TAB 20 MG PO SCH (20:58)
[2020-09-17] MEDS: NEURONTIN CAP 400 MG PO SCH (20:58)
[2020-09-17] MEDS: TRICOR TAB 160 MG PO SCH (20:59)
[2020-09-17] MEDS: SINGULAIR TAB 10 MG PO SCH (20:59)
[2020-09-17] MEDS: VICTOZA SC SCH (21:07)
[2020-09-18 00:06] LABS: HEMATOCRIT 30.8 % (36.0-47.0); HEMOGLOBIN 10.2 g/dL (12.0-16.0)
[2020-09-18] MEDS: XOPENEX 1.25 MG/3 ML NEBULE NEB SCH ×4 (00:32→17:26)
[2020-09-18] MEDS: LR 1000 ML IV 1,000 ML IV SCH ×2 (03:08→11:46)
--- NOTE | 2020-09-18 05:14 | RAD ---
HISTORYSOBSTUDYCHEST, 1 [id number]/20/2020FINDINGSThe trachea is midline. The cardiac silhouette is mildly enlarged, similar to prior exam.. Elevation of the right hemidiaphragm with small right pleural effusion. Bilateral patchy pulmonary opacities/infiltrates unchanged. No pneumothorax.. The bony thorax is unremarkable.IMPRESSIONNo significant interval change.Electronically signed by: Dayna Stallworth (Sep 18, 2020 05:12:43)
[2020-09-18] MEDS ORDERED: GLUCOPHAGE ONE ×2 (05:20→16:42)
[2020-09-18] MEDS: MERREM VIAL 500 MG in NS 100 ML IV + SPIKE MINIBAG* 100 ML IV SCH ×3 (05:33→21:24)
[2020-09-18] MEDS: NEURONTIN CAP 100 MG PO SCH ×2 (05:33→12:01)
[2020-09-18] MEDS: GLUCOPHAGE PO SCH ×2 (06:10→16:46)
[2020-09-18 06:14] LABS: BASOPHILS # (AUTO) 0.1 X10^3/uL (0.0-0.1); BASOPHILS % (AUTO) 0.9 % (0.2-1.0); EOSINOPHILS # (AUTO) 0.4 x10^3/uL (0.0-0.2); EOSINOPHILS % (AUTO) 2.8 % (0.9-2.9); HEMATOCRIT 30.6 % (36.0-47.0); HEMOGLOBIN 10.1 g/dL (12.0-16.0); LYMPHOCYTES # (AUTO) 1.8 X10^3/uL (1.3-2.9); MEAN CORPUSCULAR HEMOGLOBIN 28.2 pg (27.0-34.0); MEAN CORPUSCULAR VOLUME 85.6 fL (80.0-100.0); MEAN PLATELET VOLUME 8.2 fL (7.4-11.0); MONOCYTES # (AUTO) 1.1 x10^3/uL (0.3-0.8); MONOCYTES % (AUTO) 7.1 % (0.0-13.0); NEUTROPHILS # (AUTO) 11.6 x10^3/uL (2.2-4.8); NEUTROPHILS % (AUTO) 77.2 % (42.0-75.0); PLATELET COUNT 456 X10^3/uL (150.0-450.0); RED BLOOD COUNT 3.57 X10^6/uL (3.5-5.4)
[2020-09-18 06:36] LABS: ALANINE AMINOTRANSFERASE 31 Units/L (12-78); ALBUMIN 2.5 g/dL (3.4-5.0); ALKALINE PHOSPHATASE 83 Units/L (46-116); ASPARTATE AMINO TRANSFERASE 23 Units/L (15-37); BLOOD UREA NITROGEN 7 mg/dL (7-18); CALCIUM 8.7 mg/dL (8.5-10.1); CARBON DIOXIDE 30.4 mmol/L (21-32); CHLORIDE 100 mmol/L (98-107); COR CA(FOR HYPOALB) 9.9 mg/dL (8.5-10.1); COR NA(FOR HYPERGLY) 141 mmol/L (136-145); CREATININE 0.55 mg/dL (0.55-1.02); MAGNESIUM 1.7 mg/dL (1.7-2.9); SODIUM 139 mmol/L (136-145); TOTAL PROTEIN 7.5 g/dL (6.4-8.2); eGFR NON BLACK RACES > 60 (>60)
[2020-09-18] MEDS: ASPIRIN 81 MG CHEWTAB PO SCH (08:36)
[2020-09-18] MEDS: ALBUMIN HUMAN 25%- 100 ML 100 ML IV SCH (08:37)
[2020-09-18] MEDS: AVELOX IV 400 MG/250 ML BAG 400 MG/250 ML PIGGYBACK IV SCH (08:38)
[2020-09-18] MEDS: K-DUR TAB 20 MEQ PO SCH ×2 (08:38→20:38)
[2020-09-18] MEDS: WELLBUTRIN SR 150 MG (BID) PO SCH ×2 (08:39→20:40)
[2020-09-18] MEDS: ROBITUSSIN DM PO SCH ×4 (08:39→20:39)
[2020-09-18] MEDS: VSL#3 PO SCH (08:39)
[2020-09-18] MEDS: PULMICORT NEB TX 0.5 MG NEB SCH ×2 (08:45→20:23)
[2020-09-18] MEDS: ACTOS PO SCH (12:00)
[2020-09-18] MEDS ORDERED: LASIX IVP ONE ×2 (17:57→17:59)
[2020-09-18] MEDS: NEURONTIN CAP 400 MG PO SCH (20:38)
[2020-09-18] MEDS: EFFEXOR XR 150 MG CAP 24-HR PO SCH (20:38)
[2020-09-18] MEDS: LIPITOR TAB 20 MG PO SCH (20:38)
[2020-09-18] MEDS: SINGULAIR TAB 10 MG PO SCH (20:39)
[2020-09-18] MEDS: TRICOR TAB 160 MG PO SCH (20:39)
[2020-09-18] MEDS: VICTOZA SC SCH (20:39)
[2020-09-18] MEDS: MAG-OX TAB PO PRN (22:10)
[2020-09-19] MEDS: XOPENEX 1.25 MG/3 ML NEBULE NEB SCH ×5 (00:35→21:25)
[2020-09-19] MEDS ORDERED: GLUCOPHAGE ONE ×2 (05:00→16:48)
[2020-09-19] MEDS: MERREM VIAL 500 MG in NS 100 ML IV + SPIKE MINIBAG* 100 ML IV SCH (05:41)
[2020-09-19] MEDS: NEURONTIN CAP 100 MG PO SCH ×2 (05:41→11:40)
[2020-09-19 06:03] LABS: BASOPHILS # (AUTO) 0.1 X10^3/uL (0.0-0.1); BASOPHILS % (AUTO) 0.5 % (0.2-1.0); EOSINOPHILS # (AUTO) 0.3 x10^3/uL (0.0-0.2); EOSINOPHILS % (AUTO) 1.8 % (0.9-2.9); HEMATOCRIT 30.4 % (36.0-47.0); LYMPHOCYTES # (AUTO) 1.8 X10^3/uL (1.3-2.9); LYMPHOCYTES % (AUTO) 10.8 % (21.0-51.0); MEAN CORPUSCULAR HGB CONC 32.7 g/dL (33.0-35.0); MEAN CORPUSCULAR VOLUME 85.5 fL (80.0-100.0); MEAN PLATELET VOLUME 8.1 fL (7.4-11.0); MONOCYTES # (AUTO) 0.9 x10^3/uL (0.3-0.8); MONOCYTES % (AUTO) 5.7 % (0.0-13.0); NEUTROPHILS # (AUTO) 13.2 x10^3/uL (2.2-4.8); NEUTROPHILS % (AUTO) 81.2 % (42.0-75.0); PLATELET COUNT 431 X10^3/uL (150.0-450.0); RED BLOOD COUNT 3.56 X10^6/uL (3.5-5.4); RED CELL DISTRIBUTION WIDTH 15.4 % (11.6-16.5); WHITE BLOOD COUNT 16.3 X10^3/uL (3.6-10.0)
[2020-09-19] MEDS: GLUCOPHAGE PO SCH ×2 (06:04→16:25)
[2020-09-19 06:31] LABS: ALANINE AMINOTRANSFERASE 35 Units/L (12-78); ALBUMIN 2.6 g/dL (3.4-5.0); ALKALINE PHOSPHATASE 86 Units/L (46-116); ASPARTATE AMINO TRANSFERASE 24 Units/L (15-37); BLOOD UREA NITROGEN 5 mg/dL (7-18); CALCIUM 8.8 mg/dL (8.5-10.1); CARBON DIOXIDE 32.5 mmol/L (21-32); CHLORIDE 101 mmol/L (98-107); COR CA(FOR HYPOALB) 9.9 mg/dL (8.5-10.1); COR NA(FOR HYPERGLY) 142 mmol/L (136-145); CREATININE 0.51 mg/dL (0.55-1.02); SODIUM 140 mmol/L (136-145); TOTAL PROTEIN 7.1 g/dL (6.4-8.2); eGFR NON BLACK RACES > 60 (>60)
[2020-09-19] MEDS: ROBITUSSIN DM PO SCH ×4 (08:39→20:01)
[2020-09-19] MEDS: ASPIRIN 81 MG CHEWTAB PO SCH (08:39)
[2020-09-19] MEDS: K-DUR TAB 20 MEQ PO SCH ×2 (08:39→20:00)
[2020-09-19] MEDS: ALBUMIN HUMAN 25%- 100 ML 100 ML IV SCH (08:40)
[2020-09-19] MEDS: VSL#3 PO SCH (08:40)
[2020-09-19] MEDS: WELLBUTRIN SR 150 MG (BID) PO SCH ×2 (08:40→20:03)
[2020-09-19] MEDS ORDERED: CLEOCIN 600 MG IV PREMIX 600 MG/50 ML BAG IV ONE (09:23)
[2020-09-19] MEDS ORDERED: LASIX IVP ONE ×2 (09:34→23:35)
[2020-09-19] MEDS: PULMICORT NEB TX 0.5 MG NEB SCH ×2 (10:35→21:25)
[2020-09-19] MEDS: ACTOS PO SCH (11:40)
[2020-09-19] MEDS: CLEOCIN 300 MG IV PREMIX 300 MG/50 ML BAG IV SCH ×2 (18:11→22:00)
[2020-09-19] MEDS: EFFEXOR XR 150 MG CAP 24-HR PO SCH (20:00)
[2020-09-19] MEDS: LIPITOR TAB 20 MG PO SCH (20:01)
[2020-09-19] MEDS: NEURONTIN CAP 400 MG PO SCH (20:01)
[2020-09-19] MEDS: SINGULAIR TAB 10 MG PO SCH (20:02)
[2020-09-19] MEDS: TRICOR TAB 160 MG PO SCH (20:03)
[2020-09-19] MEDS: VICTOZA SC SCH (21:00)
--- NOTE | 2020-09-19 21:33 | RAD ---
Chest AP portableIndication: Tachycardia and dyspneaComparison September 18, 2020FINDINGSThere is no pneumothorax. There is cardiomegaly with bilateral patchy pulmonary opacities and elevation of the right hemidiaphragm. Elevation is probable of the right hemidiaphragm. Monitor leads obscure detail. Underlying infection not excluded.IMPRESSIONCardiomegaly, probable effusions and patchy pulmonary opacities suggesting CHF. Underlying infection not excluded.Electronically signed by: DEMI VELASQUEZ (Sep 19, 2020 21:31:46)
[2020-09-19] MEDS ORDERED: LASIX IVP STA (21:55)
[2020-09-19] MEDS ORDERED: LASIX ONE (23:35)
[2020-09-19] MEDS ORDERED: NS 250 ML IV 250 ML IV ONE (23:43)
[2020-09-19] MEDS ORDERED: HEPARIN SODIUM INJ 5000 UNITS ONE (23:56)
[2020-09-20] MEDS: XOPENEX 1.25 MG/3 ML NEBULE NEB SCH ×3 (00:31→13:20)
[2020-09-20] MEDS ORDERED: GLUCOPHAGE ONE (05:38)
[2020-09-20] MEDS: NEURONTIN CAP 100 MG PO SCH ×2 (06:03→12:13)
[2020-09-20] MEDS: CLEOCIN 300 MG IV PREMIX 300 MG/50 ML BAG IV SCH ×2 (06:03→14:30)
[2020-09-20] MEDS: GLUCOPHAGE PO SCH ×2 (06:05→17:47)
[2020-09-20 06:13] LABS: BASOPHILS # (AUTO) 0.1 X10^3/uL (0.0-0.1); BASOPHILS % (AUTO) 0.7 % (0.2-1.0); EOSINOPHILS # (AUTO) 0.4 x10^3/uL (0.0-0.2); EOSINOPHILS % (AUTO) 2.4 % (0.9-2.9); HEMATOCRIT 29.5 % (36.0-47.0); HEMOGLOBIN 9.7 g/dL (12.0-16.0); LYMPHOCYTES # (AUTO) 1.9 X10^3/uL (1.3-2.9); LYMPHOCYTES % (AUTO) 12.1 % (21.0-51.0); MEAN CORPUSCULAR HGB CONC 32.8 g/dL (33.0-35.0); MEAN CORPUSCULAR VOLUME 85.4 fL (80.0-100.0); MEAN PLATELET VOLUME 8.3 fL (7.4-11.0); MONOCYTES # (AUTO) 1.1 x10^3/uL (0.3-0.8); MONOCYTES % (AUTO) 6.9 % (0.0-13.0); NEUTROPHILS # (AUTO) 12.4 x10^3/uL (2.2-4.8); NEUTROPHILS % (AUTO) 77.9 % (42.0-75.0); PLATELET COUNT 470 X10^3/uL (150.0-450.0); RED BLOOD COUNT 3.46 X10^6/uL (3.5-5.4); RED CELL DISTRIBUTION WIDTH 15.5 % (11.6-16.5); WHITE BLOOD COUNT 15.9 X10^3/uL (3.6-10.0)
[2020-09-20 06:43] LABS: ALANINE AMINOTRANSFERASE 29 Units/L (12-78); ALBUMIN 2.8 g/dL (3.4-5.0); ALKALINE PHOSPHATASE 90 Units/L (46-116); ASPARTATE AMINO TRANSFERASE 19 Units/L (15-37); BLOOD UREA NITROGEN 5 mg/dL (7-18); CALCIUM 9.2 mg/dL (8.5-10.1); CARBON DIOXIDE 34.4 mmol/L (21-32); CHLORIDE 98 mmol/L (98-107); COR CA(FOR HYPOALB) 10.2 mg/dL (8.5-10.1); COR NA(FOR HYPERGLY) 141 mmol/L (136-145); CREATININE 0.62 mg/dL (0.55-1.02); SODIUM 140 mmol/L (136-145); TOTAL PROTEIN 7.5 g/dL (6.4-8.2); eGFR NON BLACK RACES > 60 (>60)
[2020-09-20] MEDS: ALBUMIN HUMAN 25%- 100 ML 100 ML IV SCH (08:39)
[2020-09-20] MEDS: ASPIRIN 81 MG CHEWTAB PO SCH (08:39)
[2020-09-20] MEDS: K-DUR TAB 20 MEQ PO SCH (08:40)
[2020-09-20] MEDS: VSL#3 PO SCH (08:40)
[2020-09-20] MEDS: WELLBUTRIN SR 150 MG (BID) PO SCH (08:40)
[2020-09-20] MEDS: ROBITUSSIN DM PO SCH ×3 (08:40→17:47)
[2020-09-20] MEDS: LOVENOX INJ 40 MG SYR SC SCH ×2 (08:41)
[2020-09-20] MEDS: PULMICORT NEB TX 0.5 MG NEB SCH (09:30)
[2020-09-20] MEDS: ACTOS PO SCH (12:14)
[2020-09-20 16:06] VITALS: BP 152/79
== END 2020-09-20 17:40 | disposition home or self-care (01) | DRG 194 ==
LOC: MED/SURG 13:45 → ER 13:45 → OBSVTOIN 17:00 → MED/SURG 20:00
PROVIDERS: ADMIT Obstetrics & Gynecology Obstetrics; ATTEND Obstetrics & Gynecology Obstetrics
DX: J21.0 Acute bronchiolitis due to respiratory syncytial virus; R91.1 Solitary pulmonary nodule; D64.9 Anemia, unspecified; R07.89 Other chest pain; M79.89 Other specified soft tissue disorders; Z20.828 Contact with and (suspected) exposure to other viral communicable diseases; J18.9 Pneumonia, unspecified organism; R79.1 Abnormal coagulation profile; R26.81 Unsteadiness on feet

== ENCOUNTER 2023-04-14 13:29 | Observation (INO) ==
[2023-04-14 13:41] VITALS: BMI 37.2
--- NOTE | 2023-04-14 14:15 | DR.HYPOGLY ---
HPI Time Seen Time Seen by Provider: 04/14/23 14:15 PCP Primary Care Physician: darrion andrews Complaint Chief Complaint Doctors Comments: 57 y/o female ill x past 4 days. Having nausea, vomiting, weakness. Glucose has been elevated (is a diabetic). Denies fever, URI symptoms, urinary difficulty. Denies diarrhea, but soiled her clothes with a BM on arrival here. Having some upper abdominal pain. Pain across the upper abdomen, radiates into the back. Nothing makes it better, nothing makes it worse. Chief Complaint:: pt states her blood sugar has been out of wack for the past 4 days along with dizziness and vomiting/nauseous denies diarrhea and c/o of abd pain along with tightness in her chest at times. COVID-19 Coronavirus risk:travel/contact w/high risk person: No Has patient experienced Coronavirus symptoms: No Nurses notes reviewed Nurses Notes Review: Yes Source History Provided: Patient Mode of Arrival Mode of Arrival: Ambulatory Timing Onset of Chief Complaint: 04/10/23 PMH PMH Past Medical History: Yes Past Medical History: Arthritis, CHF, COPD, Diabetes, Migraines, Headaches and Hypertension Past Surgical History: Yes Surgical History: Ortho Surgery Family History History of Family Medical Conditions: Yes Family Medical History: Diabetes Mellitus, Cancer, [place], Coronary Artery Disease, Heart Failure, Sudden Cardiac and Hypertension Social History Does patient currently use any type of tobacco product: Yes Have you used tobacco products in the last 12 months: Yes Type of Tobacco Use: Cigarettes Does any household member use tobacco: Yes Alcohol Use: None Do you use any recreational Drugs:: No Lives With: Family Lives Where: Home Travel Risk Coronavirus risk:travel/contact w/high risk person: No Has patient experienced Coronavirus symptoms: No Infectious screening In the last 2 months have you had wt loss of >10#?: NO Have you had fever, night sweats or hemotysis?: No Have you traveled outside the country in the last 6 months?: No Isolation: Standard ROS Review of Systems Constitutional: Malaise and Weakness Eyes: No Symptoms Reported ENTM: No Symptoms Reported Respiratoy: No Symptoms Reported Cardiovascular: No Symptoms Reported Gastrointestinal/Abdominal: Abdominal Pain, Nausea and Vomiting Genitourinary: No Symptoms Reported Neurological: Weakness and Dizziness Musculoskeletal: No Symptoms Reported Integumentary: No Symptoms Reported Hematologic/Lymphatic: No Symptoms Reported All Other Systems: Reviewed and Negative PE Vital Signs Vitals: Temperature 98.4 F Pulse Rate 86 Respiratory Rate 16 Blood Pressure [Right Arm] 170/84 Blood Pressure 130/75 O2 Sat by Pulse Oximetry 98 General General Appearance: Alert, In No Apparent Distress and Other (+ BP low) Eyes Eye exam: PERRL and EOMI ENT ENT Exam: Normal Exam and Normal Oropharynx Neck Neck Exam: Normal Inspection Respiratory Respiratory Exam: Normal Lung Sounds Bilat; negative Accessory Muscle Use or Respiratory Distress Cardiovascular Cardiovascular Exam: Regular Rate, Normal Rhythm and Normal Heart Sounds Abdominal Exam Abdominal Exam: Normal Bowel Sounds, Soft and Tenderness (across upper abdomen, no guarding or rebound.) Extremities Extremities Exam: Normal Inspection; negative Edema Neurologic Neurological Exam: Alert, Oriented X3 and CN II-XII Intact; negative Motor Sensory Deficit Skin Skin Exam: Warm and Dry COURSE Treatment Treatment: Pt ill x 4 days, w/u initiated. BP low. Given IV fluids. Labs overall acceptable, Cr a bit elevated. BP coming up,feeling better. Recommend admission for further IV hydration. CXR with questionable bibasalar infiltrates vs atelectasis, clincally more atelectasis. Will cover with IV rocephin. Discussed with Dr leigh, accepts the admission. ROR Labs Reviewed Laboratory Results Reviewed?: Yes Result Diagrams: 04/15/23 05:45 04/15/23 05:45 Laboratory: WBC 13.4 X10^3/uL (3.6-10.0) H 04/14/23 14:30 RBC 4.87 X10^6/uL (3.5-5.4) 04/14/23 14:30 Hgb 14.5 g/dL (12.0-16.0) 04/14/23 14:30 Hct 41.5 % (36.0-47.0) 04/14/23 14:30 MCV 85.3 fL (80.0-100.0) 04/14/23 14:30 MCH 29.8 pg (27.0-34.0) 04/14/23 14:30 MCHC 35.0 g/dL (33.0-35.0) 04/14/23 14:30 RDW 14.2 % (11.6-16.5) 04/14/23 14:30 Plt Count 285 X10^3/uL (150.0-450.0) 04/14/23 14:30 MPV 9.4 fL (7.4-11.0) 04/14/23 14:30 Neut % (Auto) 82.7 % (42.0-75.0) H 04/14/23 14:30 Lymph % (Auto) 10.6 % (21.0-51.0) L 04/14/23 14:30 [place] % (Auto) 6.2 % (0.0-13.0) 04/14/23 14:30 Eos % (Auto) 0.2 % (0.9-2.9) L 04/14/23 14:30 Baso % (Auto) 0.3 % (0.2-1.0) 04/14/23 14:30 Neut # (Auto) 11.1 x10^3/uL (2.2-4.8) H 04/14/23 14:30 Lymph # (Auto) 1.4 X10^3/uL (1.3-2.9) 04/14/23 14:30 [place] # (Auto) 0.8 x10^3/uL (0.3-0.8) 04/14/23 14:30 Eos # (Auto) 0.0 x10^3/uL (0.0-0.2) 04/14/23 14:30 Baso # (Auto) 0.0 X10^3/uL (0.0-0.1) 04/14/23 14:30 Absolute Nucleated RBC 0.0 /100WBC 04/14/23 14:30 Sodium 134 mmol/L (136-145) L 04/14/23 14:30 Corrected Sodium TNP 04/14/23 14:30 Potassium 4.5 mmol/L (3.5-5.1) 04/14/23 14:30 Chloride 98 mmol/L (98-107) 04/14/23 14:30 Carbon Dioxide 27.2 mmol/L (21-32) 04/14/23 14:30 BUN 29 mg/dL (7-18) H 04/14/23 14:30 Creatinine 2.44 mg/dL (0.55-1.02) H 04/14/23 14:30 Est GFR (MDRD) Af Amer 26 (>60) L 04/14/23 14:30 Est GFR (MDRD) Non-Af 22 (>60) L 04/14/23 14:30 Glucose 100 mg/dL (65-99) H 04/14/23 14:30 Lactic Acid 1.4 mmol/L (0.4-2.0) 04/14/23 14:30 Calcium 8.9 mg/dL (8.5-10.1) 04/14/23 14:30 Corrected Calcium 9.5 mg/dL (8.5-10.1) 04/14/23 14:30 Total Bilirubin 0.30 mg/dL (0.2-1.0) 04/14/23 14:30 AST 17 Units/L (15-37) 04/14/23 14:30 ALT 19 Units/L (12-78) 04/14/23 14:30 Alkaline Phosphatase 129 Units/L (46-116) H 04/14/23 14:30 Total Protein 8.0 g/dL (6.4-8.2) 04/14/23 14:30 Albumin 3.2 g/dL (3.4-5.0) L 04/14/23 14:30 Globulin 4.8 g/dL (2.5-4.5) H 04/14/23 14:30 Albumin/Globulin Ratio 0.7 Ratio (1.1-2.1) L 04/14/23 14:30 Lipase 67 Units/L (73-393) L 04/14/23 14:30 Specimen Type Clean catch urine 04/14/23 15:10 Urine Color Dark yellow (YELLOW) 04/14/23 15:10 Urine Appearance Slightly hazy (CLEAR) 04/14/23 15:10 Urine pH 5.0 (5.0 - 8.0) 04/14/23 15:10 Ur Specific [place] 1.025 (1.000-1.030) 04/14/23 15:10 Urine Protein 2+ (NEGATIVE) 04/14/23 15:10 Urine Glucose (UA) Negative (NEGATIVE) 04/14/23 15:10 Urine Ketones 1+ (NEGATIVE) 04/14/23 15:10 Urine Blood Negative (NEGATIVE) 04/14/23 15:10 Urine Nitrite Negative (NEGATIVE) 04/14/23 15:10 Urine Bilirubin Negative (NEGATIVE) 04/14/23 15:10 Urine Urobilinogen 1+ (NORMAL) 04/14/23 15:10 Ur Leukocyte Esterase 1+ (NEGATIVE) 04/14/23 15:10 Urine RBC 0-2 /HPF (0-3) 04/14/23 15:10 Urine WBC 0-2 /HPF (0-5) 04/14/23 15:10 Ur Squamous Epith Cells Few /HPF (NEGATIVE) 04/14/23 15:10 Calcium Oxalate Crystal Rare /HPF (NEGATIVE) 04/14/23 15:10 Urine Bacteria Trace /HPF (NEGATIVE) 04/14/23 15:10 Hyaline Casts Few /LPF (NEGATIVE) 04/14/23 15:10 Ur Culture Indicated? No/not indicated 04/14/23 15:10 Acetone, Semi-Quant Negative (NEGATIVE) 04/14/23 14:30 Labs acceptable. Does have 1+ ketones in the urine. Cr 2.44. Opioid Opioid Risk Tool Age ([place] box if 16-45): No History of Preadolescent Sexual Abuse: No Total: 0 Total Score Risk Category: Low Risk Copyright: Kong MILLER predicting aberrant behaviors Discharge Plan Diagnosis Discharge Problem: Vomiting, Acute dehydration Discharge Plan Patient Disposition: 09 ADMITTED INPATIENT Condition: Stable Discharge Comment: PT TRANSFERRED TO 214
[2023-04-14] MEDS ORDERED: ZOFRAN INJ 4 MG VIAL IVP ONE ×2 (14:18→20:07)
[2023-04-14] MEDS ORDERED: NS 1,000 ML IV 1,000 ML IV ONE (14:18)
[2023-04-14] MEDS ORDERED: ZOFRAN INJ 4 MG VIAL ONE (14:37)
[2023-04-14] MEDS ORDERED: NS 1,000 ML IV 1,000 ML ONE ×2 (14:37→20:51)
[2023-04-14 14:59] LABS: BASOPHILS % (AUTO) 0.3 % (0.2-1.0); EOSINOPHILS % (AUTO) 0.2 % (0.9-2.9); HEMATOCRIT 41.5 % (36.0-47.0); HEMOGLOBIN 14.5 g/dL (12.0-16.0); LYMPHOCYTES # (AUTO) 1.4 X10^3/uL (1.3-2.9); LYMPHOCYTES % (AUTO) 10.6 % (21.0-51.0); MEAN CORPUSCULAR HEMOGLOBIN 29.8 pg (27.0-34.0); MEAN CORPUSCULAR VOLUME 85.3 fL (80.0-100.0); MEAN PLATELET VOLUME 9.4 fL (7.4-11.0); MONOCYTES # (AUTO) 0.8 x10^3/uL (0.3-0.8); MONOCYTES % (AUTO) 6.2 % (0.0-13.0); NEUTROPHILS # (AUTO) 11.1 x10^3/uL (2.2-4.8); NEUTROPHILS % (AUTO) 82.7 % (42.0-75.0); PLATELET COUNT 285 X10^3/uL (150.0-450.0); RED BLOOD COUNT 4.87 X10^6/uL (3.5-5.4); RED CELL DISTRIBUTION WIDTH 14.2 % (11.6-16.5); WHITE BLOOD COUNT 13.4 X10^3/uL (3.6-10.0)
[2023-04-14 15:16] LABS: SERUM ACETONE NEGATIVE (NEGATIVE)
[2023-04-14 15:19] LABS: ALANINE AMINOTRANSFERASE 19 Units/L (12-78); ALBUMIN 3.2 g/dL (3.4-5.0); ALKALINE PHOSPHATASE 129 Units/L (46-116); ASPARTATE AMINO TRANSFERASE 17 Units/L (15-37); BLOOD UREA NITROGEN 29 mg/dL (7-18); CALCIUM 8.9 mg/dL (8.5-10.1); CARBON DIOXIDE 27.2 mmol/L (21-32); CHLORIDE 98 mmol/L (98-107); COR CA(FOR HYPOALB) 9.5 mg/dL (8.5-10.1); CREATININE 2.44 mg/dL (0.55-1.02); GLUCOSE 100 mg/dL (65-99); LIPASE 67 Units/L (73-393); POTASSIUM 4.5 mmol/L (3.5-5.1); SODIUM 134 mmol/L (136-145); eGFR NON BLACK RACES 22 (>60)
[2023-04-14 15:36] LABS: BILIRUBIN,URINE NEGATIVE (NEGATIVE); BLOOD/HEMOGLOBIN,URINE NEGATIVE (NEGATIVE); GLUCOSE, URINE NEGATIVE (NEGATIVE); KETONES,URINE 1+ (NEGATIVE); LEUKOCYTE ESTERASE ,URINE 1+ (NEGATIVE); NITRITES,URINE NEGATIVE (NEGATIVE); PROTEIN,URINE 2+ (NEGATIVE); UROBILINOGEN,URINE 1+ (NORMAL)
[2023-04-14 15:49] LABS: APPEARANCE,URINE SLIGHTLY HAZY (CLEAR); COLOR,URINE DARK YELLOW (YELLOW)
[2023-04-14 15:50] LABS: BACTERIA,URINE TRACE /HPF (NEGATIVE); HYALINE CASTS, URINE FEW /LPF (NEGATIVE); RBC,URINE 0-2 /HPF (0-3); SQUAMOUS EPITHELIAL CELL,UR FEW /HPF (NEGATIVE)
[2023-04-14 15:52] LABS: CALCIUM OXALATE CRYSTALS,UR RARE /HPF (NEGATIVE)
--- NOTE | 2023-04-14 16:43 | RAD ---
HISTORYCHEST PAINSTUDYCHEST, 1 VIEWCOMPARISON05/17/2021FINDINGSThe cardiomediastinal silhouette is normal in size. Bibasilar opacities. No pneumothorax or effusion. The bony thorax appears intact.IMPRESSIONBibasilar opacities which may reflect atelectasis or pneumonia.Electronically signed by: LOUIS BUSH (April 14, 2023 16:42:22)
[2023-04-14] MEDS ORDERED: ROCEPHIN VIAL 1 GRAM 1 G in NS 100 ML IV 100 ML IV ONE (19:15)
[2023-04-14] MEDS ORDERED: D5 1/2 NS 1,000 ML 1,000 ML IV SCH (20:07)
[2023-04-14] MEDS ORDERED: SALINE 3% 15 ML NEB TX NEB ONE (20:10)
[2023-04-14] MEDS ORDERED: PROVENTIL NEB TX 0.083% 2.5MG/ 3ML NEB PRN (20:11)
[2023-04-14] MEDS ORDERED: D5 1/2 NS 1,000 ML 1,000 ML IV ONE (20:12)
[2023-04-14] MEDS ORDERED: PROVENTIL NEB TX 0.083% 2.5MG/ 3ML ONE (20:16)
[2023-04-14] MEDS ORDERED: SALINE 3% 15 ML NEB TX ONE (20:16)
[2023-04-14] MEDS: NEURONTIN CAP 400 MG PO SCH (20:33)
[2023-04-14] MEDS: NS 1,000 ML IV 1,000 ML IV SCH (21:37)
[2023-04-14] MEDS: NovoLIN R (or HumuLIN R) SUBCUT PRN (21:38)
[2023-04-15] MEDS: NS 1,000 ML IV 1,000 ML IV SCH ×4 (04:48→20:56)
[2023-04-15 06:13] LABS: BASOPHILS # (AUTO) 0.1 X10^3/uL (0.0-0.1); BASOPHILS % (AUTO) 1.2 % (0.2-1.0); EOSINOPHILS # (AUTO) 0.2 x10^3/uL (0.0-0.2); EOSINOPHILS % (AUTO) 1.5 % (0.9-2.9); HEMATOCRIT 36.4 % (36.0-47.0); HEMOGLOBIN 12.7 g/dL (12.0-16.0); LYMPHOCYTES # (AUTO) 2.8 X10^3/uL (1.3-2.9); LYMPHOCYTES % (AUTO) 23.6 % (21.0-51.0); MEAN CORPUSCULAR HEMOGLOBIN 29.9 pg (27.0-34.0); MEAN CORPUSCULAR HGB CONC 34.8 g/dL (33.0-35.0); MEAN PLATELET VOLUME 9.9 fL (7.4-11.0); MONOCYTES % (AUTO) 8.1 % (0.0-13.0); NEUTROPHILS # (AUTO) 7.8 x10^3/uL (2.2-4.8); NEUTROPHILS % (AUTO) 65.6 % (42.0-75.0); PLATELET COUNT 249 X10^3/uL (150.0-450.0); RED BLOOD COUNT 4.23 X10^6/uL (3.5-5.4); RED CELL DISTRIBUTION WIDTH 14.3 % (11.6-16.5); WHITE BLOOD COUNT 11.9 X10^3/uL (3.6-10.0)
[2023-04-15 06:35] LABS: ALBUMIN 2.4 g/dL (3.4-5.0); CALCIUM 7.6 mg/dL (8.5-10.1); CARBON DIOXIDE 27.9 mmol/L (21-32); COR CA(FOR HYPOALB) 8.9 mg/dL (8.5-10.1); CREATININE 1.31 mg/dL (0.55-1.02); POTASSIUM 3.3 mmol/L (3.5-5.1); TOTAL PROTEIN 6.4 g/dL (6.4-8.2)
[2023-04-15] MEDS ORDERED: KLOR-CON PO PRN (07:22)
[2023-04-15] MEDS ORDERED: POTASSIUM CHL 40 MEQ/NS 0.45% 500 ML IV PRN (07:22)
[2023-04-15] MEDS ORDERED: MICRO K EXTEN CAP 10 MEQ PO PRN (07:22)
[2023-04-15] MEDS ORDERED: K-RIDER 10 MEQ/NS 100 ML 10 MEQ/100 ML BAG IV PRN (07:22)
[2023-04-15] MEDS ORDERED: MAGNESIUM SULFATE 1 GRAM/100 mL PREMIX 1 G/100 ML BAG IV PRN (07:22)
[2023-04-15] MEDS ORDERED: POTASSIUM CHLORIDE LIQ 20 MEQ UDC PO PRN (07:22)
[2023-04-15] MEDS ORDERED: POTASSIUM CHL 60 MEQ/NS 0.45% 500 ML IV PRN (07:22)
[2023-04-15] MEDS: NEURONTIN CAP 100 MG PO SCH (10:00)
[2023-04-15] MEDS: LOVENOX INJ 40 MG SYR SC SCH (10:00)
[2023-04-15] MEDS: K-DUR TAB 20 MEQ PO PRN (10:00)
[2023-04-15] MEDS: LIPITOR TAB 20 MG PO SCH (10:00)
[2023-04-15] MEDS: ZITHROMAX INJ 500 MG VIAL 500 MG in NS 250 ML IV 250 ML IV SCH (10:01)
[2023-04-15] MEDS: NovoLIN R (or HumuLIN R) SUBCUT PRN ×3 (11:47→20:57)
[2023-04-15] MEDS ORDERED: SNACK - Diabetic Appropriate PO SCH (20:00)
[2023-04-15] MEDS: NEURONTIN CAP 400 MG PO SCH (20:56)
[2023-04-15] MEDS ORDERED: ROCEPHIN VIAL 1 GRAM 1 G in NS 100 ML IV 100 ML IV SCH (21:00)
[2023-04-16] MEDS: NS 1,000 ML IV 1,000 ML IV SCH (05:21)
[2023-04-16] MEDS ORDERED: TYLENOL 325 MG TAB PO PRN (05:22)
[2023-04-16] MEDS ORDERED: TYLENOL 325 MG TAB PO ONE (05:30)
[2023-04-16] MEDS: NovoLIN R (or HumuLIN R) SUBCUT PRN (05:49)
[2023-04-16 06:14] LABS: BASOPHILS # (AUTO) 0.1 X10^3/uL (0.0-0.1); BASOPHILS % (AUTO) 0.9 % (0.2-1.0); EOSINOPHILS # (AUTO) 0.2 x10^3/uL (0.0-0.2); EOSINOPHILS % (AUTO) 2.2 % (0.9-2.9); HEMATOCRIT 34.5 % (36.0-47.0); HEMOGLOBIN 11.9 g/dL (12.0-16.0); LYMPHOCYTES # (AUTO) 3.2 X10^3/uL (1.3-2.9); LYMPHOCYTES % (AUTO) 39.3 % (21.0-51.0); MEAN CORPUSCULAR HEMOGLOBIN 29.7 pg (27.0-34.0); MEAN CORPUSCULAR HGB CONC 34.4 g/dL (33.0-35.0); MEAN CORPUSCULAR VOLUME 86.4 fL (80.0-100.0); MEAN PLATELET VOLUME 10.6 fL (7.4-11.0); MONOCYTES # (AUTO) 0.6 x10^3/uL (0.3-0.8); NEUTROPHILS % (AUTO) 49.6 % (42.0-75.0); PLATELET COUNT 229 X10^3/uL (150.0-450.0); RED BLOOD COUNT 3.99 X10^6/uL (3.5-5.4); WHITE BLOOD COUNT 8.1 X10^3/uL (3.6-10.0)
[2023-04-16 06:18] LABS: ALANINE AMINOTRANSFERASE 30 Units/L (12-78); ALBUMIN 2.3 g/dL (3.4-5.0); ALKALINE PHOSPHATASE 128 Units/L (46-116); ASPARTATE AMINO TRANSFERASE 37 Units/L (15-37); BLOOD UREA NITROGEN 14 mg/dL (7-18); CALCIUM 7.6 mg/dL (8.5-10.1); CARBON DIOXIDE 24.7 mmol/L (21-32); CHLORIDE 106 mmol/L (98-107); COR NA(FOR HYPERGLY) 142 mmol/L (136-145); CREATININE 0.96 mg/dL (0.55-1.02); GLUCOSE 262 mg/dL (65-99); POTASSIUM 4.7 mmol/L (3.5-5.1); SODIUM 138 mmol/L (136-145); TOTAL PROTEIN 6.2 g/dL (6.4-8.2); eGFR NON BLACK RACES > 60 (>60)
--- NOTE | 2023-04-16 08:13 | DR.H&P ---
H&P History & Physical for Day of: H&P Date: 04/15/23 Chief Complaint Chief Complaint: Dizziness, generalized weakness Nausea, vomiting, Allergies Allergies Allergy/AdvReac Type Severity Reaction Status Date / Time No Known Drug Allergies Allergy Verified 07/08/20 10:44 History of Present Illness History of Present Illness: Pt is a 57 year old female past medical history of Diabetes mellitus, presenting with dizziness, nausea, vomiting, weakness that has been gradually worsening for the past 3-4 days. She reports that her FSBG levels have been elevated as well. Denies fever, URI symptoms, dysuria, and diarrhea. Labs/imaging: Wbc 11.9, Hgb 12.7, Plt 249, Na 137, K 3.3, Creatinine 2.44>1.31, Glucose 143, Lipase 67, Lactic acid 1.4, UA negative, CXR was obta ined that revealed: Bibasilar opacities which may reflect atelectasis or pneumonia. Pt was admitted for pneumonia and acute kidney injury due to dehydration. She was started on IVF NS@125ml/h, antibiotics:IV Rocephin and Azithromycin, SSI, and diabetic diet. Home medications were resumed. Will vinny nue to closely monitor and follow up labs/imaging. Past Medical History Past Medical History: Arthritis, CHF, COPD, Diabetes, Migraines, Headaches and Hypertension Past Surgical History Surgical History: Ortho Surgery Family History Family Medical History: Diabetes Mellitus, [place], Coronary Artery Disease, Sudden Cardiac and Hypertension Social History Does patient currently use any type of tobacco product: Yes Have you used tobacco products in the last 12 months: Yes Type of Tobacco Use: Cigarettes How many years tobacco product used: 34 Does any household member use tobacco: Yes Alcohol Use: None Drug Use: None Medications Home Medications: No Known Drug Allergies Allergy (Verified 07/08/20 10:44) CONTINUE taking the following medications amlodipine 5 mg tablet 1 tab PO QDAY 04/14/23 [History] aspirin 81 mg tablet,delayed release 81 mg PO DAILY 04/14/23 [History] atorvastatin 20 mg tablet 1 tab PO QDAY 04/14/23 [History] losartan 100 mg tablet 1 tab PO QDAY 04/14/23 [History] ascorbic acid (vitamin C) 500 mg capsule,extended release (Vitamin C) 500 mg PO QDAY 04/15/23 [History] biotin 2,500 mcg capsule 5 mg PO QDAY 04/15/23 [History] calcium carbonate 500 mg calcium (1,250 mg) tablet 1,000 mg PO QDAY 04/15/23 [History] ergocalciferol (vitamin D2) 1,250 mcg (50,000 unit) capsule 1 cap PO QWEEK 04/15/23 [History] ferrous sulfate 325 mg (65 mg iron) tablet (FeroSul) 1 tab PO QDAY 04/15/23 [History] folic acid 1 mg tablet 1 tab PO QDAY 04/15/23 [History] gabapentin 400 mg capsule 1 cap PO QPM 04/15/23 [History] insulin aspart U-100 100 unit/mL subcutaneous solution (Novolog U-100 Insulin aspart) 65 - 70 unit QDAY 04/15/23 [History] insulin glargine 100 unit/mL (3 mL) subcutaneous pen (Basaglar KwikPen U-100 Insulin) 80 unit subcut QPM 04/15/23 [History] semaglutide 1 mg/dose (4 mg/3 mL) subcutaneous pen injector (Ozempic) 1 mg subcut QWEEK 04/15/23 [History] umeclidinium 62.5 mcg-vilanterol 25 mcg/actuation powdr for inhalation (Anoro Ellipta) 1 inh inhalation QDAY 04/15/23 [History] Labs Result Diagrams: 04/16/23 05:17 04/16/23 05:17 Labs: Laboratory WBC 8.1 X10^3/uL (3.6-10.0) 04/16/23 05:17 RBC 3.99 X10^6/uL (3.5-5.4) 04/16/23 05:17 Hgb 11.9 g/dL (12.0-16.0) L 04/16/23 05:17 Hct 34.5 % (36.0-47.0) L 04/16/23 05:17 MCV 86.4 fL (80.0-100.0) 04/16/23 05:17 MCH 29.7 pg (27.0-34.0) 04/16/23 05:17 MCHC 34.4 g/dL (33.0-35.0) 04/16/23 05:17 RDW 14.0 % (11.6-16.5) 04/16/23 05:17 Plt Count 229 X10^3/uL (150.0-450.0) 04/16/23 05:17 MPV 10.6 fL (7.4-11.0) 04/16/23 05:17 Neut % (Auto) 49.6 % (42.0-75.0) 04/16/23 05:17 Lymph % (Auto) 39.3 % (21.0-51.0) 04/16/23 05:17 [place] % (Auto) 8.0 % (0.0-13.0) 04/16/23 05:17 Eos % (Auto) 2.2 % (0.9-2.9) 04/16/23 05:17 Baso % (Auto) 0.9 % (0.2-1.0) 04/16/23 05:17 Neut # (Auto) 4.0 x10^3/uL (2.2-4.8) 04/16/23 05:17 Lymph # (Auto) 3.2 X10^3/uL (1.3-2.9) H 04/16/23 05:17 [place] # (Auto) 0.6 x10^3/uL (0.3-0.8) 04/16/23 05:17 Eos # (Auto) 0.2 x10^3/uL (0.0-0.2) 04/16/23 05:17 Baso # (Auto) 0.1 X10^3/uL (0.0-0.1) 04/16/23 05:17 Absolute Nucleated RBC 0.0 /100WBC 04/16/23 05:17 Sodium 138 mmol/L (136-145) 04/16/23 05:17 Corrected Sodium 142 mmol/L (136-145) 04/16/23 05:17 Potassium 4.7 mmol/L (3.5-5.1) 04/16/23 05:17 Chloride 106 mmol/L (98-107) 04/16/23 05:17 Carbon Dioxide 24.7 mmol/L (21-32) 04/16/23 05:17 BUN 14 mg/dL (7-18) 04/16/23 05:17 Creatinine 0.96 mg/dL (0.55-1.02) 04/16/23 05:17 Est GFR (MDRD) Af Amer > 60 (>60) 04/16/23 05:17 Est GFR (MDRD) Non-Af > 60 (>60) 04/16/23 05:17 Glucose 262 mg/dL (65-99) H 04/16/23 05:17 POC Glucose (mg/dL) 251 mg/dL (65-99) H 04/16/23 05:11 Lactic Acid 1.4 mmol/L (0.4-2.0) 04/14/23 14:30 Calcium 7.6 mg/dL (8.5-10.1) L 04/16/23 05:17 Corrected Calcium 9.0 mg/dL (8.5-10.1) 04/16/23 05:17 Magnesium 2.0 mg/dL (2.0-2.9) 04/15/23 05:45 Total Bilirubin 0.10 mg/dL (0.2-1.0) L 04/16/23 05:17 AST 37 Units/L (15-37) 04/16/23 05:17 ALT 30 Units/L (12-78) 04/16/23 05:17 Alkaline Phosphatase 128 Units/L (46-116) H 04/16/23 05:17 Total Protein 6.2 g/dL (6.4-8.2) L 04/16/23 05:17 Albumin 2.3 g/dL (3.4-5.0) L 04/16/23 05:17 Globulin 3.9 g/dL (2.5-4.5) 04/16/23 05:17 Albumin/Globulin Ratio 0.6 Ratio (1.1-2.1) L 04/16/23 05:17 Lipase 67 Units/L (73-393) L 04/14/23 14:30 Specimen Type Clean catch urine 04/14/23 15:10 Urine Color Dark yellow (YELLOW) 04/14/23 15:10 Urine Appearance Slightly hazy (CLEAR) 04/14/23 15:10 Urine pH 5.0 (5.0 - 8.0) 04/14/23 15:10 Ur Specific [place] 1.025 (1.000-1.030) 04/14/23 15:10 Urine Protein 2+ (NEGATIVE) 04/14/23 15:10 Urine Glucose (UA) Negative (NEGATIVE) 04/14/23 15:10 Urine Ketones 1+ (NEGATIVE) 04/14/23 15:10 Urine Blood Negative (NEGATIVE) 04/14/23 15:10 Urine Nitrite Negative (NEGATIVE) 04/14/23 15:10 Urine Bilirubin Negative (NEGATIVE) 04/14/23 15:10 Urine Urobilinogen 1+ (NORMAL) 04/14/23 15:10 Ur Leukocyte Esterase 1+ (NEGATIVE) 04/14/23 15:10 Urine RBC 0-2 /HPF (0-3) 04/14/23 15:10 Urine WBC 0-2 /HPF (0-5) 04/14/23 15:10 Ur Squamous Epith Cells Few /HPF (NEGATIVE) 04/14/23 15:10 Calcium Oxalate Crystal Rare /HPF (NEGATIVE) 04/14/23 15:10 Urine Bacteria Trace /HPF (NEGATIVE) 04/14/23 15:10 Hyaline Casts Few /LPF (NEGATIVE) 04/14/23 15:10 Ur Culture Indicated? No/not indicated 04/14/23 15:10 Acetone, Semi-Quant Negative (NEGATIVE) 04/14/23 14:30 Review of Systems Constitutional: No Symptoms Reported Eyes: No Symptoms Reported ENT: No Symptoms Reported Respiratory: Cough Cardiovascular: No Symptoms Reported Gastrointestinal: Nausea, Vomiting and Abdominal Pain Genitourinary: No Symptoms Reported Musculoskeletal: No Symptoms Reported Skin: No Symptoms Reported Neurological: No Symptoms Reported Physical Exam Vital Signs: Temperature 97.5 F Pulse Rate [Left] 73 Pulse Rate 86 Respiratory Rate 18 Blood Pressure [Right Arm] 128/69 Blood Pressure 142/65 O2 Sat by Pulse Oximetry 95 Oriented: Normal Eyes: Normal Ear: Normal Nose: Normal Throat: Normal Respiratory: Clear Throughout Cardiovascular: Normal : Normal Auscultation: Bowel Sounds: Normal Palpation: Normal Tenderness: Normal Skin: Normal Musculoskeletal: Normal Psychiatric: Normal Mood Description: Calm and Appropriate Affect: Normal Speech Pattern: Clear and Appropriate Assessment/Plan (1) Pneumonia: Qualifiers: Pneumonia type: due to unspecified organism Laterality: bilateral Lung location: unspecified part of lung Qualified Code(s): J18.9 - Pneumonia, unsp ecified organism Status: Acute Plan: IV antibiotics: Rocephin and Azithromycin (2) Acute dehydration: Status: Acute Plan: IVF (3) Acute kidney injury: Status: Acute Plan: IVF monitor renal function. Review H&P Reviewed: Yes Patient was examined?: Yes
[2023-04-16] MEDS: LIPITOR TAB 20 MG PO SCH (08:16)
[2023-04-16] MEDS: LOVENOX INJ 40 MG SYR SC SCH (08:16)
[2023-04-16] MEDS: ZITHROMAX INJ 500 MG VIAL 500 MG in NS 250 ML IV 250 ML IV SCH (08:16)
[2023-04-16] MEDS: NEURONTIN CAP 100 MG PO SCH (08:16)
--- NOTE | 2023-04-16 08:48 | W.DIS.FURT ---
Summary of Discharge Discharge Summary of Date Date of Exam: 04/16/23 Admission Date Date of Admission: 04/14/23 Admission Diagnosis Patient Problems (Updated 04/16/23 @ 08:11 by Jan Tripp) Vomiting (Acute) R11.10 Acute dehydration (Acute) E86.0 Hospital Course: Pt is a 57 year old female past medical history of Diabetes mellitus, admitted for pneumonia and acute kidney injury due to dehydration. Her hospital/treatment course included: IVF NS@125ml/h, antibiotics:IV Rocephin and Azithromycin, SSI, and diabetic diet. Home medications were resumed. Labs/imaging: Wbc 8.1, Hgb 11.9, Plt 229, Na 138, K 4.7, Creatinine 0.96, Glucose 262. Pt responded well to treatments. Symptoms significantly improved and almost resolved. Pt discharged in stable condition. Rx levaquin. Instructed to follow up with pcp in 1 week. Vital Signs: Vital Signs (72 hours) 04/14/23 13:31 04/14/23 13:54 04/14/23 13:54 Temperature 98.4 F Pulse Rate 81 82 Pulse Rate [Left] Respiratory Rate 16 Blood Pressure 78/47 100/59 Blood Pressure [Right Arm] O2 Sat by Pulse Oximetry 95 92 L Oxygen Delivery Method Room Air FIO2% 04/14/23 14:00 04/14/23 14:00 04/14/23 14:15 Temperature Pulse Rate 80 79 Pulse Rate [Left] Respiratory Rate 16 19 Blood Pressure 89/51 Blood Pressure [Right Arm] O2 Sat by Pulse Oximetry 90 L 87 L Oxygen Delivery Method FIO2% 04/14/23 14:30 04/14/23 14:31 04/14/23 14:31 Temperature Pulse Rate 86 84 Pulse Rate [Left] Respiratory Rate 31 H 21 Blood Pressure 83/51 Blood Pressure [Right Arm] O2 Sat by Pulse Oximetry 91 L 92 L Oxygen Delivery Method FIO2% 04/14/23 14:45 04/14/23 15:00 04/14/23 15:00 Temperature Pulse Rate 80 80 Pulse Rate [Left] Respiratory Rate 14 15 Blood Pressure 101/59 Blood Pressure [Right Arm] O2 Sat by Pulse Oximetry 91 L 95 Oxygen Delivery Method FIO2% 04/14/23 15:15 04/14/23 15:30 04/14/23 15:30 Temperature Pulse Rate 85 82 Pulse Rate [Left] Respiratory Rate 19 19 Blood Pressure 108/67 Blood Pressure [Right Arm] O2 Sat by Pulse Oximetry 98 99 Oxygen Delivery Method FIO2% 04/14/23 15:45 04/14/23 16:00 04/14/23 16:00 Temperature Pulse Rate 84 82 Pulse Rate [Left] Respiratory Rate 18 17 Blood Pressure 112/63 Blood Pressure [Right Arm] O2 Sat by Pulse Oximetry 99 98 Oxygen Delivery Method FIO2% 04/14/23 16:15 04/14/23 16:30 04/14/23 16:31 Temperature Pulse Rate 87 79 Pulse Rate [Left] Respiratory Rate 18 17 Blood Pressure 90/54 Blood Pressure [Right Arm] O2 Sat by Pulse Oximetry 97 90 L Oxygen Delivery Method FIO2% 04/14/23 16:31 04/14/23 16:45 04/14/23 17:00 Temperature Pulse Rate 80 78 Pulse Rate [Left] Respiratory Rate 17 27 H Blood Pressure 96/51 Blood Pressure [Right Arm] O2 Sat by Pulse Oximetry 90 L 90 L Oxygen Delivery Method FIO2% 04/14/23 17:00 04/14/23 17:15 04/14/23 17:30 Temperature Pulse Rate 78 75 Pulse Rate [Left] Respiratory Rate 18 15 Blood Pressure 108/53 Blood Pressure [Right Arm] O2 Sat by Pulse Oximetry 92 L 92 L Oxygen Delivery Method FIO2% 04/14/23 17:30 04/14/23 17:45 04/14/23 18:00 Temperature Pulse Rate 75 75 Pulse Rate [Left] Respiratory Rate 16 30 H Blood Pressure 112/52 Blood Pressure [Right Arm] O2 Sat by Pulse Oximetry 93 L 93 L Oxygen Delivery Method FIO2% 04/14/23 18:00 04/14/23 18:00 04/14/23 18:00 Temperature Pulse Rate 76 76 Pulse Rate [Left] Respiratory Rate 18 18 Blood Pressure 112/52 Blood Pressure [Right Arm] O2 Sat by Pulse Oximetry 95 95 Oxygen Delivery Method FIO2% 04/14/23 18:15 04/14/23 18:30 04/14/23 18:30 Temperature Pulse Rate 80 86 Pulse Rate [Left] Respiratory Rate 21 16 Blood Pressure 130/75 Blood Pressure [Right Arm] O2 Sat by Pulse Oximetry 95 98 Oxygen Delivery Method FIO2% 04/14/23 18:45 04/14/23 19:00 04/14/23 19:00 Temperature Pulse Rate 80 82 Pulse Rate [Left] Respiratory Rate 18 20 Blood Pressure 119/71 Blood Pressure [Right Arm] O2 Sat by Pulse Oximetry 98 99 Oxygen Delivery Method FIO2% 04/14/23 19:15 04/14/23 19:30 04/14/23 19:31 Temperature Pulse Rate 87 82 Pulse Rate [Left] Respiratory Rate 33 H 22 Blood Pressure 142/65 Blood Pressure [Right Arm] O2 Sat by Pulse Oximetry 97 97 Oxygen Delivery Method FIO2% 04/14/23 19:31 04/14/23 19:58 04/14/23 20:29 Temperature Pulse Rate 82 Pulse Rate [Left] Respiratory Rate 20 Blood Pressure Blood Pressure [Right Arm] 138/78 O2 Sat by Pulse Oximetry 98 Oxygen Delivery Method Room Air FIO2% 21 04/14/23 20:32 04/14/23 20:00 04/15/23 00:00 Temperature 98.5 F 97.7 F Pulse Rate 86 Pulse Rate [Left] 83 81 Respiratory Rate 20 20 Blood Pressure Blood Pressure [Right Arm] 102/55 100/59 O2 Sat by Pulse Oximetry 96 95 92 L Oxygen Delivery Method Room Air Room Air FIO2% 04/15/23 04:00 04/15/23 09:12 04/15/23 08:00 Temperature 97.7 F 98.3 F Pulse Rate Pulse Rate [Left] 81 72 Respiratory Rate 20 18 Blood Pressure Blood Pressure [Right Arm] 113/53 104/53 O2 Sat by Pulse Oximetry 94 L 95 Oxygen Delivery Method Room Air Room Air Room Air FIO2% 21 04/15/23 12:00 04/15/23 16:00 04/15/23 20:00 Temperature 98.3 F 97.8 F 98.1 F Pulse Rate Pulse Rate [Left] 81 70 76 Respiratory Rate 18 18 20 Blood Pressure Blood Pressure [Right Arm] 106/56 99/55 92/56 O2 Sat by Pulse Oximetry 94 L 96 95 Oxygen Delivery Method Room Air Room Air Room Air FIO2% 04/15/23 19:00 04/15/23 23:54 04/15/23 20:14 Temperature 97.7 F Pulse Rate Pulse Rate [Left] 80 Respiratory Rate 20 Blood Pressure Blood Pressure [Right Arm] 128/61 O2 Sat by Pulse Oximetry 97 Oxygen Delivery Method Room Air Room Air Room Air FIO2% 04/16/23 04:00 04/16/23 05:51 04/16/23 06:51 Temperature 97.5 F L Pulse Rate Pulse Rate [Left] 73 Respiratory Rate 20 18 18 Blood Pressure Blood Pressure [Right Arm] 128/69 O2 Sat by Pulse Oximetry 95 Oxygen Delivery Method Room Air FIO2% 04/16/23 07:00 Temperature Pulse Rate Pulse Rate [Left] Respiratory Rate Blood Pressure Blood Pressure [Right Arm] O2 Sat by Pulse Oximetry Oxygen Delivery Method Room Air FIO2% Labs: Laboratory Last Values WBC 8.1 X10^3/uL (3.6-10.0) 04/16/23 05:17 RBC 3.99 X10^6/uL (3.5-5.4) 04/16/23 05:17 Hgb 11.9 g/dL (12.0-16.0) L 04/16/23 05:17 Hct 34.5 % (36.0-47.0) L 04/16/23 05:17 MCV 86.4 fL (80.0-100.0) 04/16/23 05:17 MCH 29.7 pg (27.0-34.0) 04/16/23 05:17 MCHC 34.4 g/dL (33.0-35.0) 04/16/23 05:17 RDW 14.0 % (11.6-16.5) 04/16/23 05:17 Plt Count 229 X10^3/uL (150.0-450.0) 04/16/23 05:17 MPV 10.6 fL (7.4-11.0) 04/16/23 05:17 Neut % (Auto) 49.6 % (42.0-75.0) 04/16/23 05:17 Lymph % (Auto) 39.3 % (21.0-51.0) 04/16/23 05:17 [place] % (Auto) 8.0 % (0.0-13.0) 04/16/23 05:17 Eos % (Auto) 2.2 % (0.9-2.9) 04/16/23 05:17 Baso % (Auto) 0.9 % (0.2-1.0) 04/16/23 05:17 Neut # (Auto) 4.0 x10^3/uL (2.2-4.8) 04/16/23 05:17 Lymph # (Auto) 3.2 X10^3/uL (1.3-2.9) H 04/16/23 05:17 [place] # (Auto) 0.6 x10^3/uL (0.3-0.8) 04/16/23 05:17 Eos # (Auto) 0.2 x10^3/uL (0.0-0.2) 04/16/23 05:17 Baso # (Auto) 0.1 X10^3/uL (0.0-0.1) 04/16/23 05:17 Absolute Nucleated RBC 0.0 /100WBC 04/16/23 05:17 Sodium 138 mmol/L (136-145) 04/16/23 05:17 Corrected Sodium 142 mmol/L (136-145) 04/16/23 05:17 Potassium 4.7 mmol/L (3.5-5.1) 04/16/23 05:17 Chloride 106 mmol/L (98-107) 04/16/23 05:17 Carbon Dioxide 24.7 mmol/L (21-32) 04/16/23 05:17 BUN 14 mg/dL (7-18) 04/16/23 05:17 Creatinine 0.96 mg/dL (0.55-1.02) 04/16/23 05:17 Est GFR (MDRD) Af Amer > 60 (>60) 04/16/23 05:17 Est GFR (MDRD) Non-Af > 60 (>60) 04/16/23 05:17 Glucose 262 mg/dL (65-99) H 04/16/23 05:17 POC Glucose (mg/dL) 251 mg/dL (65-99) H 04/16/23 05:11 Lactic Acid 1.4 mmol/L (0.4-2.0) 04/14/23 14:30 Calcium 7.6 mg/dL (8.5-10.1) L 04/16/23 05:17 Corrected Calcium 9.0 mg/dL (8.5-10.1) 04/16/23 05:17 Magnesium 2.0 mg/dL (2.0-2.9) 04/15/23 05:45 Total Bilirubin 0.10 mg/dL (0.2-1.0) L 04/16/23 05:17 AST 37 Units/L (15-37) 04/16/23 05:17 ALT 30 Units/L (12-78) 04/16/23 05:17 Alkaline Phosphatase 128 Units/L (46-116) H 04/16/23 05:17 Total Protein 6.2 g/dL (6.4-8.2) L 04/16/23 05:17 Albumin 2.3 g/dL (3.4-5.0) L 04/16/23 05:17 Globulin 3.9 g/dL (2.5-4.5) 04/16/23 05:17 Albumin/Globulin Ratio 0.6 Ratio (1.1-2.1) L 04/16/23 05:17 Lipase 67 Units/L (73-393) L 04/14/23 14:30 Specimen Type Clean catch urine 04/14/23 15:10 Urine Color Dark yellow (YELLOW) 04/14/23 15:10 Urine Appearance Slightly hazy (CLEAR) 04/14/23 15:10 Urine pH 5.0 (5.0 - 8.0) 04/14/23 15:10 Ur Specific [place] 1.025 (1.000-1.030) 04/14/23 15:10 Urine Protein 2+ (NEGATIVE) 04/14/23 15:10 Urine Glucose (UA) Negative (NEGATIVE) 04/14/23 15:10 Urine Ketones 1+ (NEGATIVE) 04/14/23 15:10 Urine Blood Negative (NEGATIVE) 04/14/23 15:10 Urine Nitrite Negative (NEGATIVE) 04/14/23 15:10 Urine Bilirubin Negative (NEGATIVE) 04/14/23 15:10 Urine Urobilinogen 1+ (NORMAL) 04/14/23 15:10 Ur Leukocyte Esterase 1+ (NEGATIVE) 04/14/23 15:10 Urine RBC 0-2 /HPF (0-3) 04/14/23 15:10 Urine WBC 0-2 /HPF (0-5) 04/14/23 15:10 Ur Squamous Epith Cells Few /HPF (NEGATIVE) 04/14/23 15:10 Calcium Oxalate Crystal Rare /HPF (NEGATIVE) 04/14/23 15:10 Urine Bacteria Trace /HPF (NEGATIVE) 04/14/23 15:10 Hyaline Casts Few /LPF (NEGATIVE) 04/14/23 15:10 Ur Culture Indicated? No/not indicated 04/14/23 15:10 Acetone, Semi-Quant Negative (NEGATIVE) 04/14/23 14:30 Reason For Visit: VOMITING, DEHYDRATION Discharge Diagnosis All Active Problems (Updated 04/16/23 @ 08:11 by Jan Tripp) Acute kidney injury (Acute) RSV (acute bronchiolitis due to respiratory syncytial virus) (Acute) Pneumonia (Acute) Chest pain (Acute) Pulmonary cavitary lesion (Acute) Anemia (Acute) Abnormal WBC count (Acute) Vomiting (Acute) Acute dehydration (Acute) Pneumonia (Acute) Chest pain (Acute) Plan of Treatment: Continue with present treatment and follow up plan. Pt is to keep follow up appointment as instructed and take medications as ordered. Discharge Medications Discharge Medications: No Known Drug Allergies Allergy (Verified 07/08/20 10:44) CONTINUE taking the following medications amlodipine 5 mg tablet 1 tab PO QDAY 04/14/23 [History] aspirin 81 mg tablet,delayed release 81 mg PO DAILY 04/14/23 [History] atorvastatin 20 mg tablet 1 tab PO QDAY 04/14/23 [History] losartan 100 mg tablet 1 tab PO QDAY 04/14/23 [History] ascorbic acid (vitamin C) 500 mg capsule,extended release (Vitamin C) 500 mg PO QDAY 04/15/23 [History] biotin 2,500 mcg capsule 5 mg PO QDAY 04/15/23 [History] calcium carbonate 500 mg calcium (1,250 mg) tablet 1,000 mg PO QDAY 04/15/23 [History] ergocalciferol (vitamin D2) 1,250 mcg (50,000 unit) capsule 1 cap PO QWEEK 04/15/23 [History] ferrous sulfate 325 mg (65 mg iron) tablet (FeroSul) 1 tab PO QDAY 04/15/23 [History] folic acid 1 mg tablet 1 tab PO QDAY 04/15/23 [History] gabapentin 400 mg capsule 1 cap PO QPM 04/15/23 [History] insulin aspart U-100 100 unit/mL subcutaneous solution (Novolog U-100 Insulin aspart) 65 - 70 unit QDAY 04/15/23 [History] insulin glargine 100 unit/mL (3 mL) subcutaneous pen (Basaglar KwikPen U-100 Insulin) 80 unit subcut QPM 04/15/23 [History] semaglutide 1 mg/dose (4 mg/3 mL) subcutaneous pen injector (Ozempic) 1 mg subcut QWEEK 04/15/23 [History] umeclidinium 62.5 mcg-vilanterol 25 mcg/actuation powdr for inhalation (Anoro Ellipta) 1 inh inhalation QDAY 04/15/23 [History] New Prescriptions levofloxacin 750 mg tablet 750 mg PO Q24H 5 days #5 tabs 04/16/23 [Rx] Discharge Disposition Discharge Disposition: Home Discharge Condition: Stable Discharge Plan Discharge Plan Hospital Course: Pt is a 57 year old female past medical history of Diabetes mellitus, admitted for pneumonia and acute kidney injury due to dehydration. Her hospital/treatment course included: IVF NS@125ml/h, antibiotics:IV Rocephin and Azithromycin, SSI, and diabetic diet. Home medications were resumed. Labs/imaging: Wbc 8.1, Hgb 11 .9, Plt 229, Na 138, K 4.7, Creatinine 0.96, Glucose 262. Pt responded well to treatments. Symptoms significantly improved and almost resolved. Pt discharged in stable condition. Rx levaquin. Instructed to follow up with pcp in 1 week. Patient Disposition: HOME, SELF-CARE Condition: Stable Health Concerns: Post Hospitalization: new medications and changes needed to prevent readmission or further decline. Pt educated and given instructions on all concerns. Plan of Treatment: Continue with present treatment and follow up plan. Pt is to keep follow up appointment as instructed and take medications as ordered. Prescriptions: New levofloxacin 750 mg tablet 750 mg PO Q24H 5 Days Qty: 5 0RF Continued atorvastatin 20 mg tablet 1 tab PO QDAY amlodipine 5 mg tablet 1 tab PO QDAY aspirin 81 mg Tablet,Delayed Release (Dr/Ec) 81 mg PO DAILY losartan 100 mg tablet 1 tab PO QDAY gabapentin 400 mg capsule 1 cap PO QPM calcium carbonate 500 mg calcium (1,250 mg) Tablet 1,000 mg PO QDAY ferrous sulfate [FeroSul] 325 mg (65 mg iron) tablet 1 tab PO QDAY ascorbic acid (vitamin C) [Vitamin C] 500 mg Capsule, Extended Release 500 mg PO QDAY folic acid 1 mg tablet 1 tab PO QDAY ergocalciferol (vitamin D2) 1,250 mcg (50,000 unit) capsule 1 cap PO QWEEK Rx Instructions: mondays biotin 2,500 mcg Capsule 5 mg PO QDAY Anoro Ellipta 62.5-25 mcg/actuation Blister With Device 1 inh INHALATION QDAY insulin aspart U-100 [Novolog U-100 Insulin aspart] 100 unit/mL solution 65 - 70 unit QDAY Label Comments: states that she has been off of this for a while, d/t was started on insulin pump which insurance did not cover so 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 Rx Instructions: mondays Orders to Discharge Patient Discharge Orders: Discharge (Routine); Ordered 04/16/23 Ordered By: Jan Tripp Follow ups/Referrals Follow ups/Referrals: ODILIA JIMÉNEZ [Primary Care Provider] - 3 days Instructions Stand Alone Forms: Excuse From Work or School
[2023-04-16 09:36] VITALS: BP 115/70; PULSE 66; TEMP 98.7; O2SAT 97
== END 2023-04-16 11:20 | disposition home or self-care (01) ==
LOC: ER 13:29 → MED/SURG 13:29
PROVIDERS: ADMIT Family Medicine; ATTEND Family Medicine
DX: N17.8 Other acute kidney failure; E86.0 Dehydration; E11.65 Type 2 diabetes mellitus with hyperglycemia; R53.1 Weakness; R11.11 Vomiting without nausea; J18.8 Other pneumonia, unspecified organism; E87.1 Hypo-osmolality and hyponatremia; R07.89 Other chest pain; I10 Essential (primary) hypertension; R42 Dizziness and giddiness